=== PATIENT | male | born 1945 | race Caucasian/White ===

== ENCOUNTER → 2018-04-09 14:00 | Outpatient (CLI) | payer MEDICARE, OTHER, SELFPAY | PROVIDERS: PCP Family Medicine; Visit Provider Orthopaedic Surgery | DX: Z47.89 Encounter for other orthopedic aftercare (principal); M72.0 Palmar fascial fibromatosis [Dupuytren]; Z95.3 Presence of xenogenic heart valve ==

== ENCOUNTER → 2018-04-29 09:15 | Outpatient (CLI) | payer MEDICARE, OTHER, SELFPAY | PROVIDERS: PCP Family Medicine; Visit Provider Orthopaedic Surgery | DX: Z47.89 Encounter for other orthopedic aftercare (principal); M72.0 Palmar fascial fibromatosis [Dupuytren]; Z95.3 Presence of xenogenic heart valve ==

== ENCOUNTER → 2018-06-13 08:49 | Outpatient (BNVA) | payer MEDICARE, OTHER, SELFPAY | PROVIDERS: PCP Family Medicine; Referring Provider Family Medicine; Visit Provider Surgery | DX: K40.90 Unilateral inguinal hernia, without obstruction or gangrene, not specified as recurrent (principal) | CPT/HCPCS: 99202; 99213 ==

== ENCOUNTER 2018-07-08 07:03 | Day surgery (SDC) | payer MEDICARE, OTHER, SELFPAY ==
[2018-07-08] VITALS (7 sets, daily range): BP systolic 117–136; BP diastolic 55–77; PULSE 50–61; RESP 14–22; TEMP 36.2–36.6; O2SAT 96–98
[2018-07-08] MEDS: Lactated Ringers 1,000 ML 80 ML IV (07:55)
[2018-07-08] MEDS: Bupivacaine 0.25% Pres-Free 30 ML VIAL (08:59)
[2018-07-08] MEDS: Lidocaine 1% Pres-Free 5 ML VIAL (09:12)
--- NOTE | 2018-07-08 09:29 | HERN_PTH ---
PATIENT: Walt Doyle LOC: [facility] U#:[id number] AGE/SX: 73/M ROOM: RE07/08/[address]: Bhaskar Daly DO : 1945 BED: DIS: 07/08/2018 SPEC #: [id number] RECD: 07/08/18 13:05 STATUS: JAMILAH REQ #: [id number] KARI: 07/08/18 09:[address]: Bhaskar Daly DEPT: Surgical Specimen RECD BY: Floresita Pacheco ENTERED: 07/08/18 13:06 SP TYPE: Hernia Sac OTHR DR: Avelino Charles MD Tissues: 1 - HERNIA SAC, INGUINAL Procedures: GROSS AND MICRO LEVEL 3 Comments: [id number]
--- NOTE | 2018-07-08 15:12 | W.PM.OP ---
Date of service: 07/08/18 Time of Service: 09:00 Operative Note DATE OF PROCEDURE: 07/08/18 PRE-OP DIAGNOSIS: Left Inguinal Hernia POST-OP DIAGNOSIS: other (Left Indirect inguinal Hernia) PROCEDURE: Open Left Inguinal Hernia with mesh SURGEON: Bhaskar Daly PIPE STRIPPER: Chantal Abraham ANESTHESIA: GETA (LMA; Zack Cortes CRNA; ASA 2 Mallampati class IV), regional and local (1% lidocaine mixed with half percent Marcaine with epinephrine) ESTIMATED BLOOD LOSS: 5 PATHOLOGY: other (Hernia sac and cord lipoma) COMPLICATIONS: None Patient was transported to: PACU Patient's condition: stable Implants: Covidien pro-vision impaired teacher mesh anatomic left, lot number: [id number] Indications: Mr. Doyle was fishing in [place] in early May when he felt some pain in the left groin area and then noted a bulge. The bulge has gotten slightly larger up until about 3 weeks ago. he is able to reduce the bulge. He has some discomfort especially after he has been hiking or sitting for long periods of time. He denies any nausea or vomiting or changes in bowel habits. Findings: In exploring the left inguinal canal a indirect inguinal hernia was found along with associated large cord lipoma. The cord lipoma and hernia sac was subsequently excised, and the hernia repaired with mesh. Procedure Description: The patient was brought to the operating room. A time-out was completed verifying correct patient , procedure, site , allergies, medications, positioning, implants, and fire risk, prior to beginning the procedure. General anesthesia was induced, and LMA placed. Tap block was performed by anesthesia prior to performing the surgery, please see separate anesthesia note for full details. The left groin was prepped with chloraprep, and draped in the standard sterile fashion. The pubic tubercle, and anterior superior iliac spine (ASIS) were marked. A skin incision was marked starting just laterally to the pubic tubercle in a linear oblique fashion toward the ASIS. A field block was produced by injecting local along the proposed skin incision. Addition local was injected as needed during the case. I began by incising the previously marked incision line with a scalpel. The incision was deepened though Benito's and Camper's fascia with electocautery down until the aponeurosis of the external oblique was encountered. This was cleaned and the external ring exposed. Hemostasis was obtained in the wound with cautery. A stab incision was made in the midportion of the external oblique aponeurosis in the parallel to the fibers. Flaps of the external oblique were developed cephalad, and inferiorly. The cord was identified, gently dissected at the pubic tubercle, and encircled with a rajni drain, The cord was then explored, the vas deferens, and testicular vesicles were protected a indirect hernia sac was found anteromedially to the cord, which was subsequently dissected, twisted, and suture ligated after its contents were reduced. The redundant sac was sent for pathology, and the remainder reduced. A large cord lipoma was associated with the cord structures this was divided at the level of the internal ring using cautery, and sent with the hernia sac for pathology. The femoral canal was palpated and no hernia was identified. I selected a pro-vision impaired teacher anatomic left mesh lot number [id number] [place],then placed the mesh to re-enforce the floor of the inguinal canal, and create a new internal ring. The floor of the inguinal canal was cleaned medially over the pubic tubercle, cephalad over the conjoint tendon, laterally over the aponeurosis of the internal oblique, and inferiorly the inguinal ligament. A mesh was then laid in the floor of the canal with the mesh overlying the pubic tubercle medially, conjoint tendon cephalad, internal oblique aponeurosis laterally, and shelving edge of inguinal ligament inferiorly. The mesh was then inspected for apposition to the tissue, and pressed into place. The tip of a Debakey forceps easily passed through the new internal ring next the cord structures. The wound was then irrigated. Hemostasis again checked, and rajni drain removed. I closed the wound in layers, with 2-0 vicryl for the external oblique in a running fashion, 3-0 vicryl to approximate Benito's fascia, and the skin was closed with 4-0 vicryl with a running subcuticular fashion. A dressing was applied. The count was reported correct times two. No apparent complications during the case. The patient was brought to the PACU in good condition.
--- NOTE | 2018-07-08 15:20 | ROE_ITS ---
Date of service: 07/08/18 Time of Service: 09:00 Operative Note DATE OF PROCEDURE: 07/08/18 PRE-OP DIAGNOSIS: Left Inguinal Hernia POST-OP DIAGNOSIS: other (Left Indirect inguinal Hernia) PROCEDURE: Open Left Inguinal Hernia with mesh SURGEON: Bhaskar Daly MANAGER MARITIME: Chantal Abraham ANESTHESIA: GETA (LMA; Zack Cortes CRNA; ASA 2 Mallampati class IV), regional and local (1% lidocaine mixed with half percent Marcaine with epinephrine) ESTIMATED BLOOD LOSS: 5 PATHOLOGY: other (Hernia sac and cord lipoma) COMPLICATIONS: None Patient was transported to: PACU Patient's condition: stable Implants: Covidien pro-yarder operator mesh anatomic left, lot number: [id number] Indications: Mr. Doyle was fishing in [place] in early May when he felt some pain in the left groin area and then noted a bulge. The bulge has gotten slightly larger up until about 3 weeks ago. he is able to reduce the bulge. He has some discomfort especially after he has been hiking or sitting for long periods of time. He denies any nausea or vomiting or changes in bowel habits. Findings: In exploring the left inguinal canal a indirect inguinal hernia was found along with associated large cord lipoma. The cord lipoma and hernia sac was subsequently excised, and the hernia repaired with mesh. Procedure Description: The patient was brought to the operating room. A time-out was completed verifying correct patient , procedure, site , allergies, medications, positioning, implants, and fire risk, prior to beginning the procedure. General anesthesia was induced, and LMA placed. Tap block was performed by anesthesia prior to performing the surgery, please see separate anesthesia note for full details. The left groin was prepped with chloraprep, and draped in the standard sterile fashion. The pubic tubercle, and anterior superior iliac spine (ASIS) were marked. A skin incision was marked starting just laterally to the pubic tubercle in a linear oblique fashion toward the ASIS. A field block was produced by injecting local along the proposed skin incision. Addition local was injected as needed during the case. I began by incising the previously marked incision line with a scalpel. The incision was deepened though Benito's and Camper's fascia with electocautery down until the aponeurosis of the external oblique was encountered. This was cleaned and the external ring exposed. Hemostasis was obtained in the wound with cautery. A stab incision was made in the midportion of the external oblique aponeurosis in the parallel to the fibers. Flaps of the external oblique were developed cephalad, and inferiorly. The cord was identified, gently dissected at the pubic tubercle, and encircled with a rajni drain, The cord was then explored, the vas deferens, and testicular vesicles were protected a indirect hernia sac was found anteromedially to the cord, which was subsequently dissected, twisted, and suture ligated after its contents were reduced. The redundant sac was sent for pathology, and the remainder reduced. A large cord lipoma was associated with the cord structures this was divided at the level of the internal ring using cautery, and sent with the hernia sac for pathology. The femoral canal was palpated and no hernia was identified. I selected a pro-yarder operator anatomic left mesh lot number [id number] [place],then placed the mesh to re-enforce the floor of the inguinal canal, and create a new internal ring. The floor of the inguinal canal was cleaned medially over the pubic tubercle, cephalad over the conjoint tendon, laterally over the aponeurosis of the internal oblique, and inferiorly the inguinal ligament. A mesh was then laid in the floor of the canal with the mesh overlying the pubic tubercle medially, conjoint tendon cephalad, internal oblique aponeurosis laterally, and shelving edge of inguinal ligament inferiorly. The mesh was then inspected for apposition to the tissue, and pressed into place. The tip of a Debakey forceps easily passed through the new internal ring next the cord structures. The wound was then irrigated. Hemostasis again checked, and rajni drain removed. I closed the wound in layers, with 2-0 vicryl for the external oblique in a running fashion, 3-0 vicryl to approximate Benito's fascia, and the skin was closed with 4-0 vicryl with a running subcuticular fashion. A dressing was applied. The count was reported correct times two. No apparent complications during the case. The patient was brought to the PACU in good condition.
--- NOTE | 2018-07-08 15:41 | W.PM.DSUDISC ---
Discharge Plan Disposition Patient Disposition: HOME Condition: Good Discharge Details Reason For Visit: (L) INGUINAL HERNIA Attending Provider: Bhaskar Daly Primary Care Provider: Avelino Charles Home Meds and New Rx's Prescriptions: New tramadol 50 mg tablet 50 mg PO Q6H PRN (Reason: inguinal hernia repair) Qty: 10 RF: 0 Continue aspirin 81 mg tablet,chewable 81 mg PO DAILY RF: 0 atorvastatin 80 mg tablet 80 mg PO DAILY RF: 0 lansoprazole 15 mg capsule,delayed release(DR/EC) 15 mg PO DAILY RF: 0 metoprolol succinate 25 mg tablet extended release 24 hr 25 mg PO DAILY RF: 0 multivitamin [Daily Multi-Vitamin] tablet 1 tab PO DAILY RF: 0 adjuvant AS01B (PF)vial 1 of 2 [Shingrix Adjuvant Component-PF] suspension 0.5 ml IM ONCE Qty: 0.5 RF: 0 Discharge Instructions Instructions: Inguinal Hernia Repair (DC) Additional Instructions: Dr. Bhaskar Daly Post-Operative Discharge Instructions 1. Because there will be medication in your system for the next 24 hours, you may feel a little sleepy. Your coordination will be affected. Therefore: Do not drive or operate dangerous equipment for 24 hours. Do not drink alcohol beverages for 24 hours (not even beer). Plan to go home and rest for the day. Restrictions: Do not lift over 20lbs for 6 weeks. No strenuous bending or twisting for 6 weeks, if it hurts stop. No baths, you can shower. Let warm soapy water run over wound, then pat wound dry. Activity: The day of surgery spend most of the day resting in a comfortable bed or recliner. 2-3 times during the day get up and walk around the house. The day after surgery, or after your discharge, walk at least 3 times a day and spend increasing amounts of time walking and sitting up. If you are tired rest, but keep moving as able. Diet: Resume home diet as tolerated. Start with a light diet, your appetite will improve with time. Drink at least 4-6 glasses of water per day to keep hydrated. Wound Care: No dressing to remove, skin glue will wear off with time. You may cover the wound with a dry sterile dressing to keep clothing from rubbing against the wound. Call for appointment . Continue all your regular medications unless directed otherwise. Call the office or the Hospital Quality Assurance Monitor Body , If you have: Pain not controlled with pain medication. Nausea and vomiting. Temperature greater than 101 degrees Fahrenheit. Drainage from your wound that soaks through your dressing. *No more than 4000 milligrams of Tylenol in 24 hours. Narcotic pain medication can be constipating, if you have not had a bowel movement within 3 days use a laxative, I recommend Milk of Magnesia (MOM) 1oz. every 6 hrs until you have a bowel movement. I understand the above instructions and have no questions. Signature of Patient or Responsible Adult Escort Date/Time Name of Responsible Adult Escort Signature of Nurse Date/Time Revised 01/01/11 Stand Alone Forms: Anes.Nerve Block Instructions, DSU Post op Instructions, Lily Ashford (DSU) Referrals: Bhaskar Daly DO [ [facility] STAFF PHYSICIAN] - 07/23/18 9:00 am (Follow up for Inguinal hernia repair) Activity:: Activity as Tolerated Remove Dressings/Wound Care:: Do Not Remove Shower/Bathe:: 24 hours Diet:: As Tolerated Discharge Orders Discharge Orders: Discharge Order (Routine); Ordered 07/08/18 Ordered By: Bhaskar Daly Discharge Data Discharge Date/Time-TO BE ENTERED AT DEPARTURE: 07/08/18 13:06 DS: Diagnosis Discharge Diagnosis (1) Inguinal hernia of left side without obstruction or gangrene: Status: Acute Asessment and Plan: Open repair of left inguinal hernia with mesh. Operative Note DATE OF PROCEDURE: 07/08/18 PRE-OP DIAGNOSIS: Left Inguinal Hernia POST-OP DIAGNOSIS: other (Left Indirect inguinal Hernia) PROCEDURE: Open Left Inguinal Hernia with mesh SURGEON: Bhaskar Daly CERTIFIED INCOME TAX PREPARER: Chantal Abraham ANESTHESIA: GETA (LMA; Zack Cortes CRNA; ASA 2 Mallampati class IV), regional and local (1% lidocaine mixed with half percent Marcaine with epinephrine) ESTIMATED BLOOD LOSS: 5 PATHOLOGY: other (Hernia sac and cord lipoma) COMPLICATIONS: None Patient was transported to: PACU Patient's condition: stable Implants: [employer]idien pro-letterpress printing machinist mesh anatomic left, lot number: [id number] Indications: Mr. Doyle was fishing in [place] in early May when he felt some pain in the left groin area and then noted a bulge. The bulge has gotten slightly larger up until about 3 weeks ago. he is able to reduce the bulge. He has some discomfort especially after he has been hiking or sitting for long periods of time. He denies any nausea or vomiting or changes in bowel habits. Findings: In exploring the left inguinal canal a indirect inguinal hernia was found along with associated large cord lipoma. The cord lipoma and hernia sac was subsequently excised, and the hernia repaired with mesh. Procedure Description: The patient was brought to the operating room. A time-out was completed verifying correct patient , procedure, site , allergies, medications, positioning, implants, and fire risk, prior to beginning the procedure. General anesthesia was induced, and LMA placed. Tap block was performed by anesthesia prior to performing the surgery, please see separate anesthesia note for full details. The left groin was prepped with chloraprep, and draped in the standard sterile fashion. The pubic tubercle, and anterior superior iliac spine (ASIS) were marked. A skin incision was marked starting just laterally to the pubic tubercle in a linear oblique fashion toward the ASIS. A field block was produced by injecting local along the proposed skin incision. Addition local was injected as needed during the case. I began by incising the previously marked incision line with a scalpel. The incision was deepened though Benito's and Camper's fascia with electocautery down until the aponeurosis of the external oblique was encountered. This was cleaned and the external ring exposed. Hemostasis was obtained in the wound with cautery. A stab incision was made in the midportion of the external oblique aponeurosis in the parallel to the fibers. Flaps of the external oblique were developed cephalad, and inferiorly. The cord was identified, gently dissected at the pubic tubercle, and encircled with a rajni drain, The cord was then explored, the vas deferens, and testicular vesicles were protected a indirect hernia sac was found anteromedially to the cord, which was subsequently dissected, twisted, and suture ligated after its contents were reduced. The redundant sac was sent for pathology, and the remainder reduced. A large cord lipoma was associated with the cord structures this was divided at the level of the internal ring using cautery, and sent with the hernia sac for pathology. The femoral canal was palpated and no hernia was identified. I selected a pro-letterpress printing machinist anatomic left mesh lot number [id number] [place],then placed the mesh to re-enforce the floor of the inguinal canal, and create a new internal ring. The floor of the inguinal canal was cleaned medially over the pubic tubercle, cephalad over the conjoint tendon, laterally over the aponeurosis of the internal oblique, and inferiorly the inguinal ligament. A mesh was then laid in the floor of the canal with the mesh overlying the pubic tubercle medially, conjoint tendon cephalad, internal oblique aponeurosis laterally, and shelving edge of inguinal ligament inferiorly. The mesh was then inspected for apposition to the tissue, and pressed into place. The tip of a Debakey forceps easily passed through the new internal ring next the cord structures. The wound was then irrigated. Hemostasis again checked, and rajni drain removed. I closed the wound in layers, with 2-0 vicryl for the external oblique in a running fashion, 3-0 vicryl to approximate Benito's fascia, and the skin was closed with 4-0 vicryl with a running subcuticular fashion. A dressing was applied. The count was reported correct times two. No apparent complications during the case. The patient was brought to the PACU in good condition.
== END 2018-07-08 13:06 | disposition home or self-care (01) ==
PROVIDERS: PCP Family Medicine; Visit Provider Surgery
PROC: (CPT 49505; principal; 2018-07-08 09:00)
DX: K40.90 Unilateral inguinal hernia, without obstruction or gangrene, not specified as recurrent (principal); K21.9 Gastro-esophageal reflux disease without esophagitis
CPT/HCPCS: 49505; 76942; 88300; 88304; C1781; J0131; J0690; J1100; J1885; J2405

== ENCOUNTER 2018-07-18 02:28 | Outpatient (CLI) | payer MEDICARE, OTHER, SELFPAY ==
[2018-07-18 09:32] LABS: Cholesterol 174 mg/dL (50-200); HDL Cholesterol 44 mg/dL (40-60); LDL CHOLESTEROL 100 mg/dL (<100); Triglyceride 207 mg/dL (30-150)
[2018-07-21 12:09] LABS: Lyme Ab w Rflx to Lyme Confirm Negative
== END 2018-07-18 02:48 ==
PROVIDERS: PCP Family Medicine; Visit Provider Family Medicine
DX: I71.9 Aortic aneurysm of unspecified site, without rupture (principal); K59.4 Anal spasm; E78.5 Hyperlipidemia, unspecified; Z95.1 Presence of aortocoronary bypass graft; W57.XXXA Bitten or stung by nonvenomous insect and other nonvenomous arthropods, initial encounter; T14.8XXA Other injury of unspecified body region, initial encounter
CPT/HCPCS: 36415; 80061; 83721; 86618

== ENCOUNTER → 2018-07-23 08:52 | Outpatient (BNVA) | payer MEDICARE, OTHER, SELFPAY | PROVIDERS: PCP Family Medicine; Referring Provider Family Medicine; Visit Provider Surgery | DX: Z48.89 Encounter for other specified surgical aftercare (principal); K40.90 Unilateral inguinal hernia, without obstruction or gangrene, not specified as recurrent ==

== ENCOUNTER 2018-08-29 02:10 | Outpatient (CLI) | payer MEDICARE, OTHER, SELFPAY ==
[2018-08-29 09:32] LABS: ALT 45 U/L (12-78); AST 28 U/L (15-37); Albumin 3.6 g/dL (3.4-5.0); Alkaline Phosphatase 54 U/L (46-116); BUN 14 mg/dL (7-18); Bilirubin, Direct 0.11 mg/dL (0.00-0.20); Bilirubin, Total 0.4 mg/dL (0.2-1.0); Calcium 8.7 mg/dL (8.5-10.1); Chloride 105 mmol/L (98-107); Glucose 103 mg/dL (70-100); Potassium 4.2 mmol/L (3.5-5.1); Sodium 141 mmol/L (136-145); Total Protein 6.6 g/dL (6.4-8.2)
== END 2018-08-29 02:30 ==
PROVIDERS: PCP Family Medicine; Visit Provider Family Medicine
DX: B35.1 Tinea unguium (principal); Z95.1 Presence of aortocoronary bypass graft
CPT/HCPCS: 36415; 80053; 80076

== ENCOUNTER → 2018-09-18 13:54 | Outpatient (BNVA) | payer MEDICARE, OTHER, SELFPAY | PROVIDERS: PCP Family Medicine; Referring Provider Family Medicine; Visit Provider Physical Therapy Assistant | DX: Z12.11 Encounter for screening for malignant neoplasm of colon (principal); Z86.010 Personal history of colon polyps ==

== ENCOUNTER 2018-09-30 09:03 | Day surgery (SDC) | payer MEDICARE, OTHER, SELFPAY ==
--- NOTE | 2018-09-30 06:39 | W.COLOREPORT ---
Date of service: 09/30/18 Time of Service: 10:11 Colonoscopy Report Date of procedure: 09/30/18 Pre-op diagnosis general: Hx of polyps Post-op diagnosis procedure note: other (Diverticulosis, AVM, Hx of polyps) Procedure: Colonoscopy Surgeon: Sangita Matta Anesthesia proc note operative: MAC (Laura Quigley, VILLA/ ASA 2) Estimated blood loss (mL): 0 Pathology: none sent Complications: None Disposition: same day Indications: Mr. Doyle is a pleasant 73 year old male with a history of polyps who was seen in the office for a repeat colonoscopy. Risks, benefits and complications have been reviewed. Complications include but are not limited to bleeding, pain, perforation, missed small lesion/polyp, sore throat, aspiration and adverse reaction to the medications. Questions were entertained and answered to their satisfaction and they wished to proceed. No guarantees were given or implied. Prep: Miralax/Dulcolax Procedure Start Time: 10:11 Procedure End Time: 10:41 Retraction Time: 19 minutes Findings: AVM's scattered throughout Sigmoid diverticulosis Procedure Description: After informed consent was obtained the patient was taken to the procedure room and placed in a left decubitous position. Monitors were applied and a time out was done. The patients name, date of , procedure, allergies to medications and metal in their body was reviewed. The patient was then sedated. Once sedated and comfortable a rectal exam was done. External exam was normal. Internal exam revealed a normal sphincter tone and no palpable masses. The prostate was smooth. The scope was then introduced and retro-flexed. No internal hemorrhoids were identified. The scope was then advanced to the cecum with some difficulty due to a tortuous colon. The TI and appendiceal orifice were identified. The prep was good. The scope was then slowly retracted over 19 minutes back into the rectum. No polyps were noted, there were diverticula in the sigmoid colon. The scope was removed and the patient was woken up and taken back to Same day surgery in stable condition. The patient tolerated the procedure well and there were no immediate complications. Follow up: The patient should follow up in 5 years unless they develop changes in bowel habits or other new gastrointestinal complaints.
--- NOTE | 2018-09-30 06:51 | W.PM.DSUDISC ---
Discharge Plan Disposition Patient Disposition: HOME Condition: Good Discharge Details Reason For Visit: Hx of polyps/ colonoscopy Attending Provider: Sangita Matta Primary Care Provider: Avelino Charles Home Meds and New Rx's Prescriptions: Continued aspirin 81 mg tablet,chewable 81 mg PO DAILY RF: 0 lansoprazole 15 mg capsule,delayed release(DR/EC) 15 mg PO DAILY RF: 0 multivitamin [Daily Multi-Vitamin] tablet 1 tab PO DAILY RF: 0 atorvastatin 80 mg tablet 80 mg PO DAILY Qty: 90 RF: 4 metoprolol succinate 25 mg tablet extended release 24 hr 25 mg PO DAILY Qty: 90 RF: 4 terbinafine HCl 250 mg tablet 250 mg PO HS RF: 0 Discontinued bisacodyl [Dulcolax (bisacodyl)] 5 mg tablet,delayed release (DR/EC) 5 mg PO ONCE Qty: 4 RF: 0 polyethylene glycol 3350 17 gram/dose powder 255 g PO ONCE Qty: 255 RF: 0 Discharge Instructions Instructions: Colonoscopy (DC), Diverticulosis (DC) Additional Instructions: Findings: Diverticulosis Follow up: 5 years Please call if you develop: fevers >101.5 Nausea or Vomiting Abdominal pain that is not transient DAY SURGERY UNIT POST COLONOSCOPY INSTRUCTIONS 1. Because there will be medication in your system for the next 24 hours, you may feel a little sleepy. Your coordination will be affected. Therefore: a. Do not drive or operate dangerous equipment for 24 hours. b. Do not drink alcohol beverages for 24 hours (not even beer). c. Plan to go home and rest for the day. 2. Generally there are no restrictions on your activity after a day or so has gone by, but you may feel a bit fatigued for a few days. 3 After you arrive home you may have a light meal and return to a normal diet as you can tolerate it without feeling sick to your stomach. 4. After surgery, you may feel pain or discomfort. This should be only transient, but if it persists please contact your doctor. 5. If there are any questions regarding the findings of your procedure, please feel free to contact your doctor. 6. If you are unable to contact your doctor with a problem, contact the hospital at [phone]. 7. Continue all your regular medications unless directed otherwise. I understand the above instructions and have no questions. Signature of Patient or Responsible Adult Escort Date/Time Name of Responsible Adult Escort Signature of Nurse Date/Time Stand Alone Forms: Lily Ashford (MERCEDESU) Activity:: Activity as Tolerated Diet:: high fiber Discharge Orders Discharge Orders: Discharge Order (Routine); Ordered 09/30/18 Ordered By: Sangita Matta DS: Diagnosis Discharge Diagnosis (1) Personal history of colonic polyps: Status: Acute (2) S/P colonoscopy: Status: Acute (3) Diverticulosis: Status: Acute
[2018-09-30 09:11] VITALS: BP 135/75; PULSE 68; RESP 16; TEMP 36.6; O2SAT 98
[2018-09-30] MEDS: Lactated Ringers 1,000 ML 80 ML IV (09:38)
[2018-09-30 11:15] VITALS: BP 106/67; PULSE 59; RESP 16; TEMP 35.3; O2SAT 94
== END 2018-09-30 11:34 | disposition home or self-care (01) ==
LOC: SUR 09:03
PROVIDERS: PCP Family Medicine; Visit Provider Surgery
PROC: 0DJD8ZZ Inspection of Lower Intestinal Tract, Via Natural or Artificial Opening Endoscopic (ICD-10-PCS; CPT 45378; principal; 2018-09-30 09:45)
DX: Z12.11 Encounter for screening for malignant neoplasm of colon (principal); K57.30 Diverticulosis of large intestine without perforation or abscess without bleeding; K63.89 Other specified diseases of intestine; Z86.010 Personal history of colon polyps; K21.9 Gastro-esophageal reflux disease without esophagitis
CPT/HCPCS: G0105

== ENCOUNTER → 2018-10-08 13:06 | Outpatient (BNVA) | payer MEDICARE, OTHER, SELFPAY | PROVIDERS: PCP Family Medicine; Visit Provider Student in an Organized Health Care Education/Training Program | DX: R09.89 Other specified symptoms and signs involving the circulatory and respiratory systems (principal); E78.2 Mixed hyperlipidemia; Z86.79 Personal history of other diseases of the circulatory system; Z95.1 Presence of aortocoronary bypass graft; Z95.3 Presence of xenogenic heart valve; I25.810 Atherosclerosis of coronary artery bypass graft(s) without angina pectoris | CPT/HCPCS: 99215 ==

== ENCOUNTER 2018-10-24 01:36 | Outpatient (CLI) | payer MEDICARE, OTHER, SELFPAY ==
--- NOTE | 2018-10-24 13:29 | DI.US_ITS ---
SYMPTOMS/DIAGNOSIS: AORTIC VALVE STENOSIS, REPLACEMENT, CAROTID BRUIT, ASSESS DEGREE OF CAROTID STENOSIS, OTHER SYMPTOMS AND SIGNS INVOLVING THE CIRCULATORY SYSTEM, I35.0, R09.89 CAROTID ULTRASOUND: Routine examination was performed. On the right, there is marked calcific plaque seen in the bulb and proximal internal carotid artery. No hemodynamically significant velocity elevations are seen. The right vertebral artery is antegrade. On the left, no hemodynamically significant velocity elevations are present. The left vertebral artery is antegrade. IMPRESSION: No evidence of hemodynamically significant cervical carotid artery stenosis.
--- NOTE | 2018-10-24 14:15 | MERGE_ITS ---
*[facility]* *[facility]* [address] [place] [address] Date of study: 10/24/2018 Transthoracic Echocardiography M-mode, complete 2D, complete spectral Doppler, and color Doppler *STUDY CONCLUSIONS* Summary: 1. Left ventricle: The cavity size was normal. Wall thickness was normal. Systolic function was at the lower limits of normal. The estimated ejection fraction was 50-55%. Hypokinesis of the anteroseptal myocardium. 2. Right ventricle: The cavity size was at the upper limits of normal. Systolic function was mildly reduced. 3. Left atrium: The atrium was mildly dilated. 4. Aortic valve: A bioprosthesis was present and functioning normally. There was trivial regurgitation. Mean gradient (S): 11mm Hg. 5. Tricuspid valve: There was mild-moderate regurgitation. 6. Inferior vena cava: The vessel was patent and normal in size. The respirophasic diameter changes were in the normal range (greater than or equal to 50%), consistent with normal central venous pressure. *PATIENT PRESENTATION* Height: 185.4cm ((73in) ) S/D Pressure: 118 / 56 Weight: 86.2kg ((189.6lb) ) BSA: 2.11m^2 Test start time: 02:20 PM. Test stop time: 03:30 PM. PERFORMING Unknown ORDERING Zuhair Black REFERRING Zuhair Black CONSULTING Avelino Charles PERFORMING [facility] MANAGER DISH RT Desiree (R)(CT)FADY *PROCEDURE DATA* Procedure information: The patient was identified by two identifiers. This study was interpreted by [facility]. Pertinent images and digital data are archived for permanent storage and are available for subsequent review. Comparison was made to the study of 11/22/2015. Study status: Routine. Transthoracic echocardiography. M-mode, complete 2D, complete spectral Doppler, and color Doppler. A Transthoracic Echocardiogram was performed. Scanning was performed from the parasternal, apical, subcostal, and suprasternal notch acoustic windows. Images were obtained using an [id number] cardiac ultrasound machine. Image quality was adequate. Study completion: The patient tolerated the procedure well. There were no complications. History: PMH: Bruit, R09.89 other specified symptoms and signs involving the circulatory and respiratory system. AVR. *CARDIAC ANATOMY* Left ventricle: The cavity size was normal. Wall thickness was normal. Systolic function was at the lower limits of normal. The estimated ejection fraction was 50-55%. Regional wall motion abnormalities: Hypokinesis of the anteroseptal myocardium. Aortic valve: A bioprosthesis was present and functioning normally. Mobility was not restricted. Doppler: Transvalvular velocity was within the normal range. There was no stenosis. There was trivial regurgitation. VTI ratio of LVOT to aortic valve: 0.41. Valve area (VTI): 1.6cm^2. Indexed valve area (VTI): 0.7cm^2/m^2. Peak velocity ratio of LVOT to aortic valve: 0.43. Valve area (Vmax): 1.6cm^2. Indexed valve area (Vmax): 0.8cm^2/m^2. Mean velocity ratio of LVOT to aortic valve: 0.46. Valve area (Vmean): 1.7cm^2. Indexed valve area (Vmean): 0.8cm^2/m^2. Mean gradient (S): 11mm Hg. Peak gradient (S): 18.2mm Hg. Aorta: Aortic root: The aortic root was normal in size. Mitral valve: Mildly thickened leaflets. Mobility was not restricted. Doppler: Transvalvular velocity was within the normal range. There was no evidence for stenosis. There was mild regurgitation. Valve area by pressure half-time: 3.2cm^2. Indexed valve area by pressure half-time: 1.5cm^2/m^2. Left atrium: The atrium was mildly dilated. Right ventricle: The cavity size was at the upper limits of normal. Systolic function was mildly reduced. Pulmonic valve: Poorly visualized. The pulmonary valve appears to be grossly normal. Doppler: Transvalvular velocity was within the normal range. There was no evidence for stenosis. There was trivial regurgitation. Tricuspid valve: Structurally normal valve. Doppler: Transvalvular velocity was within the normal range. There was no evidence for stenosis. There was mild-moderate regurgitation. Pulmonary artery: Poorly visualized. Pulmonary systolic pressure was within the normal range, in the range of 25mm Hg to 30mm Hg. Right atrium: The atrium was normal in size. Pericardium: There was no pericardial effusion. Systemic veins: Inferior vena cava: Not well visualized. The vessel was patent and normal in size. The respirophasic diameter changes were in the normal range (greater than or equal to 50%), consistent with normal central venous pressure. Baseline ECG: Sinus bradycardia. Measurements Left ventricle Value Reference LV ID, ED, PLAX 5.1 cm 3.5 - 6.0 LV ID, ES, PLAX 3.6 cm 2.1 - 4.0 LV PW thickness, ED, PLAX 0.9 cm LV end-diastolic volume, 1-p A2C 89 ml LV ejection fraction, 1-p A2C 52 % LV end-diastolic volume, 1-p A4C 94 ml LV ejection fraction, 1-p A4C 51 % LV e', lateral 0.182 m/sec LV E/e', lateral 3 LV e', medial 0.078 m/sec LV E/e', medial 6 LV e', average 0.13 m/sec LV E/e', average 4 Ventricular septum Value Reference IVS thickness, ED, PLAX 1.0 cm LVOT Value Reference LVOT ID, A-P 2.2 cm LVOT area 3.8 cm^2 LVOT peak velocity, S 0.91 m/sec LVOT mean velocity, S 0.71 m/sec LVOT VTI, S 22.3 cm LVOT peak gradient, S 3.3 mm Hg LVOT mean gradient, S 2.2 mm Hg Stroke volume (SV), LVOT DP 85 ml Stroke index (SV/bsa), LVOT DP 40 ml/m^2 Aortic valve Value Reference Aortic valve peak velocity, S 2.1 m/sec Aortic valve mean velocity, S 1.56 m/sec Aortic valve VTI, S 54.0 cm Aortic mean gradient, S 11 mm Hg Aortic peak gradient, S 18.2 mm Hg VTI ratio, LVOT/AV 0.41 Aortic valve area, VTI 1.6 cm^2 Velocity ratio, peak, LVOT/AV 0.43 Aortic valve area, peak velocity 1.6 cm^2 Velocity ratio, mean, LVOT/AV 0.46 Aortic valve area, mean velocity 1.7 cm^2 Aortic valve area/bsa, mean velocity 0.8 cm^2/m^2 Left atrium Value Reference LA ID, A-P, ES 4.6 cm LA ID/bsa, A-P 2.2 cm/m^2 <=2.2 LA area, ES, A4C 21.6 cm^2 8.8 - 23.4 LA area, ES, A2C 20 cm^2 LA volume/bsa, ES, 1-p A4C 34 ml/m^2 LA volume, ES, 2-p 65 ml LA volume/bsa, ES, 2-p 31 ml/m^2 Mitral valve Value Reference Mitral E-wave peak velocity 0.49 m/sec Mitral A-wave peak velocity 0.37 m/sec Mitral deceleration time (H) 236 ms 150 - 230 Mitral pressure half-time 68 ms Mitral E/A ratio, peak 1.35 Mitral valve area, PHT, DP 3.2 cm^2 Pulmonary veins Value Reference Pulmonary vein peak velocity, S 0.75 m/sec Pulmonary vein peak velocity, D 0.54 m/sec Pulmonary vein velocity ratio, peak, 1.39 S/D Pulmonary vein A-wave reversal peak 0.94 m/sec velocity Pulmonary vein A-wave reversal 204 ms duration Tricuspid valve Value Reference Tricuspid regurg peak velocity 2.5 m/sec Tricuspid peak RV-RA gradient 25.9 mm Hg Right atrium Value Reference RA area, ES, A4C 19.3 cm^2 8.3 - 19.5 Legend: (L) and (H) mando values outside specified reference range. I have personally reviewed the images and have reviewed and edited the reported findings. Electronically signed by Malu Pinto 10/25/2018 08:02
== END 2018-10-24 01:56 ==
PROVIDERS: PCP Family Medicine; Visit Provider Student in an Organized Health Care Education/Training Program
DX: R09.89 Other specified symptoms and signs involving the circulatory and respiratory systems (principal); Z95.3 Presence of xenogenic heart valve; I35.0 Nonrheumatic aortic (valve) stenosis; Z95.1 Presence of aortocoronary bypass graft; E78.5 Hyperlipidemia, unspecified
CPT/HCPCS: 93306; 93880

== ENCOUNTER 2019-07-23 02:04 | Outpatient (CLI) | payer MEDICARE, OTHER, SELFPAY ==
[2019-07-23 08:03] LABS: Anion Gap 5.4 mmol/L (3-11); BUN 12 mg/dL (7-18); CO2 30.6 mmol/L (21.0-32.0); CREATININE 0.77 mg/dL (0.70-1.30); Calcium 8.7 mg/dL (8.5-10.1); Chloride 107 mmol/L (98-107); Glucose 104 mg/dL (70-100); Potassium 4.6 mmol/L (3.5-5.1); Sodium 143 mmol/L (136-145)
== END 2019-07-23 02:24 ==
PROVIDERS: PCP Family Medicine; Visit Provider Family Medicine
DX: Z95.1 Presence of aortocoronary bypass graft (principal); I25.10 Atherosclerotic heart disease of native coronary artery without angina pectoris
CPT/HCPCS: 36415; 80048

== ENCOUNTER 2020-07-29 02:02 | Outpatient (CLI) | payer MEDICARE, OTHER, SELFPAY ==
[2020-07-29 09:59] LABS: Calculated LDL 85 mg/dL (<100); Cholesterol 153 mg/dL (<200); HDL Cholesterol 52 mg/dL (40-60); Triglyceride 81 mg/dL (<150)
== END 2020-07-29 02:22 ==
PROVIDERS: PCP Nurse Practitioner; Visit Provider Nurse Practitioner
DX: I71.2 Thoracic aortic aneurysm, without rupture (principal)
CPT/HCPCS: 36415; 80061

== ENCOUNTER 2021-01-06 02:14 | Outpatient (CLI) | payer MEDICARE, OTHER, SELFPAY ==
[2021-01-06 17:05] LABS: PSA, Screening 1.3 ng/mL (0.0-6.5)
== END 2021-01-06 02:15 | disposition home or self-care (01) ==
PROVIDERS: PCP Nurse Practitioner; Visit Provider Nurse Practitioner
DX: R35.1 Nocturia (principal); Z12.5 Encounter for screening for malignant neoplasm of prostate
CPT/HCPCS: 36415; 84153

== ENCOUNTER 2021-08-31 03:35 | Outpatient (CLI) | payer MEDICARE, OTHER, SELFPAY ==
[2021-08-31 08:18] LABS: Calculated LDL 107 mg/dL (<100); Cholesterol 183 mg/dL (<200); HDL Cholesterol 53 mg/dL (40-60); Triglyceride 117 mg/dL (<150)
[2021-08-31 09:46] LABS: Hemoglobin A1C 5.5 % (<5.7)
== END 2021-08-31 03:36 | disposition home or self-care (01) ==
LOC: LBO 03:35
PROVIDERS: PCP Nurse Practitioner; Visit Provider Nurse Practitioner
DX: E78.00 Pure hypercholesterolemia, unspecified (principal); I71.2 Thoracic aortic aneurysm, without rupture; R73.09 Other abnormal glucose
CPT/HCPCS: 36415; 80061; 83036

== ENCOUNTER 2021-09-26 08:16 | Outpatient (CLI) | payer MEDICARE, OTHER, SELFPAY ==
--- NOTE | 2021-09-26 08:15 | RT.EKG_ITS ---
APPROVED REPORT Exam: Resting ECG Reason for Exam: CAD Patient Location: O HR:60 bpm ECG Measurements Heart Rate 60 AXIS TN 174 P 41 QRSd 117 QRS 74 QT 432 T -8 QTc 432 Conclusion Sinus rhythm...normal P axis, V-rate 50- 99 Probable left ventricular hypertrophy...multiple LVH criteria Borderline T abnormalities, inferior leads...T flat/neg, II III aVF
== END 2021-09-26 08:17 | disposition home or self-care (01) ==
LOC: DI.CARD 08:25
PROVIDERS: PCP Nurse Practitioner; Visit Provider Internal Medicine Cardiovascular Disease
DX: I25.10 Atherosclerotic heart disease of native coronary artery without angina pectoris (principal); Z95.1 Presence of aortocoronary bypass graft
CPT/HCPCS: 93010

== ENCOUNTER → 2021-09-26 10:44 | Outpatient (BNVA) | payer MEDICARE, OTHER, SELFPAY | PROVIDERS: PCP Nurse Practitioner; Referring Provider Nurse Practitioner; Visit Provider Internal Medicine Cardiovascular Disease | DX: I25.10 Atherosclerotic heart disease of native coronary artery without angina pectoris (principal); Z95.1 Presence of aortocoronary bypass graft; Z98.890 Other specified postprocedural states; Z86.79 Personal history of other diseases of the circulatory system; I10 Essential (primary) hypertension | CPT/HCPCS: 93005; 99203; 99214 ==

== ENCOUNTER 2021-10-18 00:38 | Outpatient (CLI) | payer MEDICARE, OTHER, SELFPAY ==
--- NOTE | 2021-10-18 07:30 | DI.CT_ITS ---
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 TECHNIQUE: Imaging Protocol: CT angiography of the chest was performed using pulmonary embolus manuel col. Multi planar reconstructions were performed. CONTRAST MATERIAL: Intravenous: Omnipaque 350 Contrast volume: 100 cc COMPARISON: No exams were available for comparison FINDINGS: CHEST: PULMONARY ARTERIES: There are no intraluminal filling defects to suggest acute pulmonary emboli. THORACIC AORTA: There is sternotomy wires and a prosthetic aortic valve. Diameter of the ascending t horacic aorta is prominent, measuring 4.4 cm. No obvious aortic dissection. LUNGS: There are no infiltrates nor evidence of pulmonary infarction.. There are no pleural effusions . MEDIASTINUM: There is no hilar nor mediastinal adenopathy. Visualized thyroid unremarkable. CARDIAC: Heart size is upper normal. There is no pericardial effusion. There is no significant shift of the interventricular septum. PARTIALLY VISUALIZED UPPERMOST ABDOMEN: No obvious findings OSSEOUS: No significant osseous lesions.. IMPRESSION: 1. No evidence of acute pulmonary emboli. No evidence of pulmonary infarction.No infiltrates nor vanessa nous pulmonary nodules. No pleural effusions 2. Sternotomy. Prosthetic aortic valve. 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 No pericardial effusion. RADIATION DOSE DELIVERED: 494.23mGy.cm Total DLP DATA REPOSITORY: All CT scans at this facility are submitted to the National Radiology Data Registry (NRDR) Dose Index Registry (DIR) with the [employer] (ACR). RADIATION OPTIMIZATION: All CT scans at this facility use at least one of these dose optimization te chniques: automated exposure control; mA and/or kV adjustment per patient size (includes targeted exa ms where dose is matched to clinical indication); or iterative reconstruction.
[2021-10-18 14:18] LABS: CREATININE 0.8 mg/dL (0.70-1.30)
[2021-10-18] MEDS: Omnipaque 350 MG/ML 100 ML BTL IJ (15:11)
[2021-10-18] MEDS: Normal Saline Flush 10 ML SYR IVP (15:12)
== END 2021-10-18 00:58 ==
PROVIDERS: PCP Nurse Practitioner; Visit Provider Internal Medicine Cardiovascular Disease
DX: I71.4 Abdominal aortic aneurysm, without rupture (principal); Z98.890 Other specified postprocedural states; Z95.1 Presence of aortocoronary bypass graft; Z95.2 Presence of prosthetic heart valve; Z01.812 Encounter for preprocedural laboratory examination
CPT/HCPCS: 71275; 82565; J3490

== ENCOUNTER 2021-11-10 01:00 | Outpatient (CLI) | payer MEDICARE, OTHER, SELFPAY ==
--- NOTE | 2021-11-10 06:30 | DI.US_ITS ---
APPROVED REPORT EXAM: Comprehensive 2D, Doppler, and color-flow Echocardiogram Patient Location: Out-Patient Office Support Specialist: Felicita Tatum RDCS (AE) Indications: Bioprosthetic aortic valve, Thoracic aortic aneurysm repair Other Information Study Quality: Adequate Conclusion Normal left ventricular wall thickness and chamber size. Estimated ejection fraction is approximatel y 60%. Wall motion is normal Normal right ventricular size and systolic function Both atria are mildly dilated There is a bioprosthetic aortic valve present. Mean gradient is 8.5 mmHg. There is no aortic regurg itation The ascending aorta is not well visualized Wall motion Left Ventricle The left ventricle is normal size. The left ventricular systolic function is normal. The left ventric ular ejection fraction is within the normal range. There is normal left ventricular wall thickness. T here is normal LV segmental wall motion. There is no ventricular septal defect visualized. LVEF is 59 %. Right Ventricle The right ventricle is normal size. The right ventricular systolic function is normal. Atria Left atrium is mildly dilated. Right atrium is mildly dilated. The interatrial septum is intact with no evidence for an atrial septal defect. Aortic Valve There is no aortic valvular stenosis. No aortic regurgitation is present. Bioprosthetic aortic valve is present. Mitral Valve The mitral valve is normal in structure. No evidence of mitral valve stenosis. Trace mitral regurgita tion. Tricuspid Valve The tricuspid valve is normal in structure. There is no tricuspid valve stenosis. Mild tricuspid regu rgitation. Pulmonic Valve Pulmonic valve is not well visualized. There is no pulmonic valvular stenosis. There is no pulmonic v alvular regurgitation. Great Vessels The aortic root is normal in size. Ascending aorta is not well visualized. Aortic arch is normal in c aliber. IVC is normal in size and collapses >50% with inspiration. Pericardium There is no pericardial effusion. 2D Dimensions IVSD d PLAX 1.04 cm M: 0.6-1.2 LV Vol A2C d MOD 116.7 mL LVPW d PLAX 1.00 cm M: 0.6 - 1.2 LV Vol A4C d MOD 126.3 mL LVID d PLAX 5.14 cm M: 4.2 - 5.8 LA vol/ BSA A2C s A-L 41.9 mL/m2 LVDs 3.30 cm M: 2.5 - 4.0 LA vol/ BSA A4C s A-L 27.9 mL/m2 Ao Root d 2.80 cm M: 3.1 - 3.7 LA Vol/ BSA Biplane s A-L 36.0 mL/m2 RA Area A4C 14.53 cm2 LA Area A4C s MOD 19.99 cm2 RA Vol/ BSA A4C s A-L 17.5 mL/m2 LA Area A2C s MOD 23.28 cm2 LV EF Teichholz 64.1 % LV EF A4C MOD 59.9 % LVEF (Davis's) 58.47 % M: 52 - 72 LV EF A2C MOD 58.9 % LV Volume 92.09 mL M: 62 - 150 LV EF Biplane MOD 58.5 % LV Volume Index 44.70 mL/m2 M: 34 - 74 SV 72.52 mL LV Vol Biplane MOD 124.0 mL SV Index 35.19 mL/m2 FS 35.10 % LV Diastology MV E' medial 0.087 (>0.07 m/s) E/A Ratio 1.1 LV E/e MED 7.70 (<14) MV E Vmax 0.67 (0.4-1.3 m/s) MV E' lateral 0.171 (>0.1 m/s) MV A Vmax 0.60 (0.4-1.3 m/s) LV E/e LAT 3.90 (<14) MV E/A Ratio 1.10 MV E/E' medial 7.70 MV E/E' lateral 3.92 Aortic Valve LVOT Area 4.14 cm2 AoV Area Vmax 2.00 cm2 LVOT Vmax 0.94 m/s AoV Area/ BSA (Vmax) 0.97 cm2/m2 LVOT Mean Dewayne. 0.68 m/s SIDNEY Mean Dewayne. 2.07 cm2 LVOT Peak Grad 3.5 mmHg SIDNEY Mean Dewayne. Index 1.01 cm2/m2 LVOT Mean Grad 2.0 mmHg LVOT VTI 0.219 m LVOT Diam s 2.25 cm AoV Vmax 1.94 m/s Velocity Ratio 0.48 AoV Mean Dewayne. 1.35 m/s AoV Peak Grad 15.0 mmHg LVOT SV 90.73 mL AoV Mean Grad 8.5 mmHg AoV VTI 0.471 m AoV Area VTI 1.93 cm2 AoV Area/ BSA (VTI) 0.93 cm/m2 Mitral Valve MV DT 269 (160-240 msec) MV PHT 78 msec MV Area PHT 2.82 cm2 MV VTI 0.274 m MV Area VTI 3.32 (4.0-6.0 cm2) Pulmonary Valve PV Vmax 0.92 (0.5-1.5 m/s) RVOT Peak Gr. 2.30 mmHg PV Peak Grad 3.4 mmHg RVOT Mean Gr. 1.00 mmHg PV Mean Grad 2.3 mmHg RVOT VTI 0.152 m PV VTI 0.248 m RVOT Vmax 0.76 m/s Tricuspid Valve TR Peak Grad 19.8 mmHg TR Vmax 2.23 m/s RA Pressure 3.00 mmHg RVSP (TR) 22.9 mmHg
== END 2021-11-10 01:20 ==
PROVIDERS: PCP Nurse Practitioner; Visit Provider Internal Medicine Cardiovascular Disease
DX: I25.10 Atherosclerotic heart disease of native coronary artery without angina pectoris (principal)
CPT/HCPCS: 93306

== ENCOUNTER → 2022-06-26 09:14 | Outpatient (BNVA) | payer MEDICARE, OTHER, SELFPAY | PROVIDERS: PCP Nurse Practitioner; Referring Provider Nurse Practitioner; Visit Provider Internal Medicine Cardiovascular Disease | DX: I25.810 Atherosclerosis of coronary artery bypass graft(s) without angina pectoris (principal); Z86.79 Personal history of other diseases of the circulatory system; Z95.1 Presence of aortocoronary bypass graft; Z98.890 Other specified postprocedural states | CPT/HCPCS: 99214 ==

== ENCOUNTER → 2022-09-13 10:49 | Outpatient (BNVA) | payer MEDICARE, SELFPAY | PROVIDERS: PCP Nurse Practitioner Family; Referring Provider Nurse Practitioner Family; Visit Provider Urology | DX: R39.89 Other symptoms and signs involving the genitourinary system (principal); N39.42 Incontinence without sensory awareness | CPT/HCPCS: 51798; 81003; 99213 ==

== ENCOUNTER 2023-03-08 04:50 | Emergency (ER) | payer MEDICARE, SELFPAY ==
[2023-03-08] VITALS (53 sets, daily range): BP systolic 118–128; BP diastolic 57–80; PULSE 48–78; RESP 0–28; TEMP 36.4–36.8; O2SAT 81–99
--- NOTE | 2023-03-08 04:45 | RT.EKG_ITS ---
APPROVED REPORT Exam: Resting ECG Reason for Exam: dizzy Patient Location: E HR:57 bpm ECG Measurements Heart Rate 57 AXIS SC 179 P 22 QRSd 120 QRS 76 QT 509 T 48 QTc 495 Conclusion Sinus bradycardia...rate< 60 Nonspecific intraventricular conduction delay...QRSd >115mS, not LBBB/RBBB
--- NOTE | 2023-03-08 05:00 | DI.CT_ITS ---
Exam(s) CT HEAD WO EXAM: CT HEAD WO CLINICAL HISTORY: dizziness. TECHNIQUE: Imaging Protocol: Axial computed tomography images with coronal and sagittal reformatted images were created and reviewed COMPARISON: No exams were available for comparison FINDINGS: Ventricles and Extra axial spaces: Normal in size and morphology for the patient's age. Hemorrhage: None. Cerebral parenchyma: Minimal atrophy. No significant white matter changes visible. No evidence of a cute infarct or mass. Midline shift: None. Brainstem/Cerebellum: Normal. Calvarium: Normal. Visualized Paranasal sinuses/Mastoids: Clear. Soft Tissues: Unremarkable. IMPRESSION: No acute intracranial process. RADIATION DOSE DELIVERED: 886.94mGy.cm Total DLP DATA REPOSITORY: All CT scans at this facility are submitted to the National Radiology Data Registry (NRDR) Dose Index Registry (DIR) with the [employer] (ACR). RADIATION OPTIMIZATION: All CT scans at this facility use at least one of these dose optimization te chniques: automated exposure control; mA and/or kV adjustment per patient size (includes targeted exa ms where dose is matched to clinical indication); or iterative reconstruction.
--- NOTE | 2023-03-08 05:01 | ED.GENADUL_ITS ---
Discharge Plan Discharge Details Chief Complaint: Nausea/Vomit/Diar Primary Care Provider: Hira Davis ED Provider: Nathen Underwood Home Meds and New Rx's Prescriptions: No Action aspirin 81 mg tablet,chewable 81 mg PO DAILY lansoprazole 15 mg capsule,delayed release(DR/EC) 15 mg PO DAILY atorvastatin 80 mg tablet 80 mg PO DAILY Qty: 90 4RF metoprolol succinate 25 mg tablet extended release 24 hr 25 mg PO DAILY Qty: 90 4RF amoxicillin 500 mg capsule 2,000 mg PO PRN PRN (Reason: for dental work) Medical Decision Making Imaging Data Radiologic Study: Imaging: X-Ray My impression: No infiltrate in the chest x-ray as interpreted by me ECG Data Attestation: I personally reviewed and interpreted this ECG (s) as follows: Prior ECG tracings: available for review Interpretation: Sinus bradycardia...rate 57 looks feels better Nonspecific intraventricular conduction delay...QRSd >115mS, not LBBB/RBBB HPI General Date/Time Provider Initiated Documentation: 03/08/23 05:00 . HPI Narrative: Patient presents emergency department stating that he woke up to go to the bathroom and felt dizzy like things were spinning and could not walk got very nauseous and started having episode of vomiting. Also had watery diarrhea. States that he is still dizzy reason he came to the emergency department but he drove himself here. He states that driving was hard because things seem to be spinning. Denies any chest pain denies any shortness of breath denies any headache. Patient also states that prior to this episode last he was mowing the lawn yesterday and to exercise he was profusely diaphoretic and last night when he had the episode of dizziness also he was potentially diaphoretic. Related Data Home Medications Medication Instructions Recorded Confirmed aspirin 81 mg chewable tablet 81 mg PO DAILY 05/20/18 03/08/23 lansoprazole 15 mg capsule,delayed 15 mg PO DAILY 05/20/18 03/08/23 release atorvastatin 80 mg tablet 80 mg PO DAILY #90 tabs 09/16/22 03/08/23 metoprolol succinate 25 mg 25 mg PO DAILY #90 tabs 09/16/22 03/08/23 tablet,extended release 24 hr amoxicillin 500 mg capsule 2,000 mg PO PRN PRN for dental work 03/08/23 03/08/23 Previous Rx's Medication Instructions Recorded atorvastatin 80 mg tablet 80 mg PO DAILY #90 tabs 09/16/22 metoprolol succinate 25 mg 25 mg PO DAILY #90 tabs 09/16/22 tablet,extended release 24 hr Allergies Allergy/AdvReac Type Severity Reaction Status Date / Time No Known Allergies Allergy Verified 03/08/23 04:57 Review of Systems All systems reviewed & are unremarkable except as noted in HPI and below Constitutional Constitutional: Reports as per HPI Eyes Eyes: Reports as per HPI and Reports system reviewed and no additional complaints, except as documented ENT Ears, Nose, Mouth, and Throat: Reports system reviewed and no additional complaints, except as documented Cardiovascular Cardiovascular: Reports as per HPI and Reports system reviewed and no additional complaints, except as documented Respiratory Respiratory: Reports as per HPI and Reports system reviewed and no additional complaints, except as documented Gastrointestinal Gastrointestinal: Reports as per HPI and Reports system reviewed and no additional complaints, except as documented Genitourinary Genitourinary: Reports system reviewed and no additional complaints, except as documented and Reports as per HPI Musculoskeletal Musculoskeletal: Reports system reviewed and no additional complaints, except as documented Integumentary/Breasts Skin/Breast: Reports system reviewed and no additional complaints, except as documented Neurologic Neurologic: Reports system reviewed and no additional complaints, except as documented Psychiatric Psychiatric: Reports system reviewed and no additional complaints, except as documented Endocrine Endocrine: Reports system reviewed and no additional complaints, except as documented PFSH All Active Problems Gastroesophageal reflux disease (Acute 07/09/13) H/O aortic aneurysm repair (Acute) 11/2011 [facility] [place] coronary artery bypass surgery (Acute) 11/2011 with pericardial AVR [facility] [place] Hyperlipidemia (Acute 07/09/13) Migraine without aura (Acute 07/09/13) ocular migraines Sleep disorder (Acute) Decreased hearing of left ear (Acute) Leaking of urine (Acute) Post-nasal drainage (Acute) Seborrheic keratoses (Acute) Urinary incontinence without sensory awareness (Acute) Multiple nevi (Acute) Jock itch (Acute) Medical History Contracture of palmar fascia (07/09/13) multiple surgeries - also for ganglion cysts Diverticulosis Family history of ischemic heart disease (07/09/13) History of tobacco use (07/09/13) Inguinal hernia of left side without obstruction or gangrene Personal history of colonic polyps 07/01/13 -tubular adenoma Plantar fasciitis (07/09/13) 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 replacement of ascending aorta with aortic valve replacement with triple bypass three years ago b. ganglion cyst removal c. hand surgery d. Achilles tendon surgery e. tonsillectomy and adenoidectomy f. vasectomy g. colonoscopy HAND SURGERY 04/22; DR. SANCHEZ REPAIR OF ACHILLES TENDON Repair of inguinal hernia Repair of umbilical hernia (~09/2014) S/P colonoscopy (~09/30/18) Tonsillectomy and adenoidectomy Vasectomy Family History Mother No problems noted. Father , AGE 62 Heart disease Sister No problems noted. Maternal Grandfather , age 84 Stroke Paternal Grandfather , age 62 Heart disease Maternal Grandmother , age 84 Stroke Son No problems noted. Daughter No problems noted. Paternal Grandmother , age 90 No problems noted. Social History Smoking/Tobacco Use Status: Former Tobacco Use tobacco type: cigarettes Quit Date: 09/09/72 Tobacco: How many years used: 6 Quit status: quit date established Second Hand Exposure: No Smoking risk assessment performed?: Yes Alcohol Intake: current Alcohol Intake frequency: a few times a month Alcohol type: beer and hard liquor Drug use: Never Substance use type: does not use Caregiver/Support person: No Household members: spouse Housing: house Communication Needs: Corrective Lenses Do you need help understanding health information?: Never Pets and animals: No Sexually active: Yes Do you think of yourself as: straight/heterosexual Current gender identity: male What is your relationship status?: How often do you talk on the phone with friends or family?: three or more times per week How often do you get together with friends or relatives?: decline to answer How often do you attend worship or denominational services?: 1-3 times per year Do you belong to any clubs or organized social groups?: no Panel score (0-1 are the most socially isolated patients): 2 What type of physical activity do you participate in: none and walking Frequency: does not exercise Margie/Sikhism: Taoist Special margie needs: No Seatbelt use: always Helmet use: Yes Helmet use: sometimes Drive intox or ride w/intox lokie driver: No Do you feel safe at home: Yes Do you feel safe in your relationship?: Yes Victim of physical abuse: No Victim of emotional abuse: No Victim of sexual abuse: No Would you like helpful sources: No Exam Narrative Exam Narrative: Exam; vitals signs as reported above Constitutional; In no acute distress, afebrile General: cooperative, healthy appearing, comfortable and no acute distress HEENT: Head: normal to inspection, no palpable skull fracture and normocephalic Eyes: l: appearance normal, both eyes and all related structures ]Pupils: PERRL EOM: EOM intact bilaterally Direct ophthalmoscopy: normal light reflex, normal conjunctiva, normal visual acuity Neck no JVD, supple Neck: normal visual inspection, full ROM and no lymphadenopathy Chest Chest: normal inspection of the chest Respiratory : normal respiratory effort and able to speak in complete sentences Cardio Rate: Bradycardic regular rate Rhythm: regular rhythm normal heart sounds S1 and S2 no murmurs, gallops, or rubs GI Inspection: normal to inspection, normal bowel sounds, soft, non tender, non distended, no organomegally Back/Spine/ no CVA tenderness Thoracic/Lumbar Spine: no tenderness or deformities Skin no rashes or lesions Neuro: patient alert and no meningeal signs, Cranial Nerves: CN's II-XI intact bilaterally, Cognition: normal cognition, Speech: speech normal, Gait: normal gait, Depp tendon reflexes normal 2+ Extremities, no edema, full range of motion, normal strength POCUS Exam (ED) Limited Cardiac Exam DATE OF EXAM: 03/08/23 TIME OF EXAM: 07:16 PROVIDER THAT PERFORMED THE STUDY: Nathen Underwood REASON FOR EXAM: Hypoxia VISUALIZED STRUCTURES: Four Chambers, Left atrium, Left ventricle, LVOT, Right atrium, Right ventricle, Aortic valve, Mitral valve, Interventricular septum and IVC VIEW OBTAINED: Apical 4-Chamber, Parasternal long-axis, Parasternal short-axis and Subxiphoid PERTINENT FINDINGS/IMPRESSION: No apparent abnormalities Exam complete Sign Out Sign Out Data: Sign Out Comment: Patient presents to the emergency department with dizziness and diaphoresis who had labs done with an elevated D-dimer and a CT PE is pending POCUS exam and troponin as well as beta drug peptide are all negative. Patient feels fine after meclizine was likely he has experienced vertigo. Last updated by Nathen Underwood MD at 03/08/23 07:31
[2023-03-08] MEDS: Ondansetron 4 MG/2 ML VIAL IVP (05:15)
[2023-03-08] MEDS: Normal Saline 1,000 ML 1000 ML IV (05:16)
[2023-03-08] MEDS: Meclizine 25 MG TAB PO (05:17)
[2023-03-08 05:36] LABS: Abs Immature Grans 0.02 10^3/uL (0.0-0.06); Absolute Eosinophil Count 0.24 10^3/uL (0.0-0.7); Absolute Lymphocyte Count 2.21 10^3/uL (1.2-3.4); Absolute Monocyte Count 0.68 10^3/uL (0.1-0.8); Basophils % 1.7; HCT 41.5 % (40.0-50.0); HGB 14.5 g/dL (13.5-17.5); Immature Grans % 0.3; Lymphocytes % 36.5; MCH 31.7 pg (27.0-33.0); MCHC 34.9 % (32.0-36.0); MCV 91 fL (80-95); MPV 9.8 fL (8.0-11.0); Monocytes % 11.2; Neutrophils % 46.3; Platelet Count 206 10^3/uL (130-400); RBC 4.57 10^6/uL (4.36-5.78); RDW 12.3 % (11.8-14.1); RDW-SD 40.9 fL; WBC 6.05 10^3/uL (4.4-10.8)
[2023-03-08 05:55] LABS: ALT 33 U/L (16-63); AST 30 U/L (15-37); Albumin 3.4 g/dL (3.4-5.0); Alkaline Phosphatase 59 U/L (46-116); BUN 16 mg/dL (7-18); Bilirubin, Total 0.4 mg/dL (0.2-1.0); CREATININE 0.8 mg/dL (0.70-1.30); Calcium 8.5 mg/dL (8.5-10.1); Chloride 106 mmol/L (98-107); Estimated GFR 91.72 (mL/min/1.73m2); Glucose 130 mg/dL (74-106); Magnesium 1.8 mg/dL (1.8-2.4); Potassium 3.2 mmol/L (3.5-5.1); Sodium 141 mmol/L (136-145); Total Protein 6.6 g/dL (6.4-8.2); Troponin I < 50 ng/L (<or=60)
--- NOTE | 2023-03-08 06:00 | DI.RAD_ITS ---
Exam(s) XR PORTABLE CHEST AP EXAM: XR PORTABLE CHEST AP CLINICAL HISTORY: dyspnea TECHNIQUE: 2D digital imaging was performed. COMPARISON: No exams were available for comparison FINDINGS: LUNGS: Clear. No pleural abnormality seen. HEART: Normal size. Mildly enlarged. Status post CABG. AORTA: Normal diameter. Aortic valve prosthesis. BONES: Sternal wires. Soft tissues: Unremarkable. IMPRESSION: No acute findings. DATA REPOSITORY: RADIATION DOSE DELIVERED:
--- NOTE | 2023-03-08 06:14 | DI.VRAD_ITS ---
PROCEDURE INFORMATION: Exam: CT Head Without Contrast Exam date and time: 03/08/2023 5:33 AM Age: 78 years old Clinical indication: Stroke-like symptoms; Dizziness/giddiness; Additional info: Dizzy TECHNIQUE: Imaging protocol: Computed tomography of the head without contrast. Radiation optimization: All CT scans at this facility use at least one of these dose optimization techniques: automated exposure control; mA and/or kV adjustment per patient size (includes targeted exams where dose is matched to clinical indication); or iterative reconstruction. Other technique: STROKE PROTOCOL was implemented. COMPARISON: No relevant prior studies available. FINDINGS: Brain: No acute hemorrhage. No patterns reflective of acute ischemia. Areas of white matter hypoattenuation are most suggestive of but not specific for chronic microvascular disease. Milian-white differentiation well preserved. Sulci and subarachnoid cisterns non effaced. Cerebral ventricles: No ventriculomegaly. Paranasal sinuses: Minimal right maxillary in sinus mucoperiosteal thickening. Mastoid air cells: Visualized mastoid air cells are well aerated. Orbital cavities: Right lens implant. Bones/joints: Unremarkable. No acute calvarial fracture. Soft tissues: Unremarkable. Vasculature: Supraclinoid carotid calcification. IMPRESSION: No acute intracranial pathology. ASPECTS ([place] Stroke Program Early CT Score) is 10. Head CT may in not demonstrate signs of acute early ischemia. Could consider brain MRI. Dictated and Authenticated by: Aleksandar Layne MD. Ordering:RADAMES Sena MD
[2023-03-08 06:49] LABS: D-Dimer 1181 ng/mlFEU (<500)
--- NOTE | 2023-03-08 07:12 | DI.VRAD_ITS ---
PROCEDURE INFORMATION: Exam: XR Chest Exam date and time: 03/08/2023 6:36 AM Age: 78 years old Clinical indication: Dyspnea TECHNIQUE: Imaging protocol: Radiologic exam of the chest. Views: 1 view. COMPARISON: CT THORAX CTA 10/18/2021 2:59 PM FINDINGS: Tubes, catheters and devices: Overlying monitoring leads. Lungs: Lungs clear. Pleural spaces: No pleural effusion. No pneumothorax. Heart/Mediastinum: Pericardiac post CABG surgical changes. Aortic valve prosthesis. Cardiac silhouette not enlarged. Bones/joints: Sternotomy wires. IMPRESSION: No acute findings. Dictated and Authenticated by: Aleksandar Layne MD. Ordering:RADAMES Sena MD
[2023-03-08 07:21] LABS: NT-proBNP 132 pg/mL (<300)
[2023-03-08] MEDS: Normal Saline Flush 10 ML SYR IJ (07:38)
[2023-03-08] MEDS: Normal Saline - Diluent 50 ML VIAL IJ (07:41)
[2023-03-08] MEDS: Omnipaque 350 MG/ML 500 ML BTL-Imaging package 100 ML IJ (07:42)
--- NOTE | 2023-03-08 07:50 | DI.CT_ITS ---
Exam(s) CT CHEST PE CTA EXAM: CT CHEST PE CTA CLINICAL HISTORY: dyspnea. TECHNIQUE: Imaging Protocol: Axial CT angiography was performed with multi-slice acquisition and mu lti-planar reconstructions as well as axial, coronal and sagittal MIP reconstructions. CONTRAST MATERIAL: Intravenous: Omnipaque 350 Contrast volume:100 ml COMPARISON: CT CT THORAX CTA from 10/18/2021 FINDINGS: Pulmonary Arteries: No evidence of filling defect to suggest pulmonary emboli. Tracheobronchial tree: Patent where visualized. Mediastinum and Frieda: No dominant adenopathy or fluid collection. Pulmonary parenchyma: Mild respiratory motion and dependent changes. No consolidation or dominant m easurable mass. Pleura: No effusion or pneumothorax. Heart: The heart is moderately dilated. Mild coronary artery calcifications are seen. Aorta: Aortic valve prosthesis. Stable dilatation of ascending aorta 4.4 cm. No dissection. No ane urysm. No dissection. Upper abdomen: Unremarkable. Bones: Sternal wires.. Tubes, Catheters, and Lines: IMPRESSION: No evidence of pulmonary embolism or other acute abnormality. RADIATION DOSE DELIVERED: 335.72mGy.cm Total DLP DATA REPOSITORY: All CT scans at this facility are submitted to the National Radiology Data Registry (NRDR) Dose Index Registry (DIR) with the [employer] (ACR). RADIATION OPTIMIZATION: All CT scans at this facility use at least one of these dose optimization te chniques: automated exposure control; mA and/or kV adjustment per patient size (includes targeted exa ms where dose is matched to clinical indication); or iterative reconstruction.
--- NOTE | 2023-03-08 08:45 | W.EDPROG ---
Date of service: 03/08/23 Time of Service: 08:45 Medical Decision Making Pt signed out to me pending cta of the chest which was read as negative by Dr. Spicer and myself. Pt stable, has no complaints now and feels well, ambulating with normal gait unassisted. He did feel better after meclizine so suspect vertigo, although also could be he's over medicated on the metoprolol as his HR has been in the low50's, advised pt to discuss with his pcp if they feel this should be adjusted. He is stable for d/c, advised to f/u with pcp and return precautions given Sign Out Sign Out Data: Sign Out Comment: Patient presents to the emergency department with dizziness and diaphoresis who had labs done with an elevated D-dimer and a CT PE is pending POCUS exam and troponin as well as beta drug peptide are all negative. Patient feels fine after meclizine was likely he has experienced vertigo. Last updated by Nathen Underwood MD at 03/08/23 07:31 Discharge Plan Disposition Patient Disposition: Home Condition: Stable Discharge Details Clinical Impression: Balance problem Primary Care Provider: Hira Davis ED Provider: Ba Herrera Home Meds and New Rx's Prescriptions: New meclizine 25 mg tablet 25 mg PO BID PRN (Reason: dizziness) Qty: 30 0RF Continued aspirin 81 mg tablet,chewable 81 mg PO DAILY lansoprazole 15 mg capsule,delayed release(DR/EC) 15 mg PO DAILY atorvastatin 80 mg tablet 80 mg PO DAILY Qty: 90 4RF metoprolol succinate 25 mg tablet extended release 24 hr 25 mg PO DAILY Qty: 90 4RF amoxicillin 500 mg capsule 2,000 mg PO PRN PRN (Reason: for dental work) Discharge Instructions Additional Instructions: Your blood work and cat scans did not show concerning findings at this time You improved with fluids and also meclizine Follow up with your primary care provider within 1-2 weeks. If you have similar episodes discuss if your metoprolol dose should be adjusted If you feel more ill, have worsening symptoms or new symptoms such as chest pain or difficulty breathing return to the emergency department
--- NOTE | 2023-03-08 09:15 | DI.VRAD_ITS ---
PROCEDURE INFORMATION: Exam: CTA Chest With Contrast Exam date and time: 03/08/2023 7:45 AM Age: 78 years old Clinical indication: Dyspnea TECHNIQUE: Imaging protocol: Computed tomographic angiography of the chest with contrast. Exam focused on the arteries. 3D rendering (Not supervised by radiologist): MIP and/or 3D reconstructed images were created by the technologist. Radiation optimization: All CT scans at this facility use at least one of these dose optimization techniques: automated exposure control; mA and/or kV adjustment per patient size (includes targeted exams where dose is matched to clinical indication); or iterative reconstruction. Contrast material: OMNI-PAQUE 350; Contrast volume: 100 ml; Contrast route: INTRAVENOUS (IV); COMPARISON: CT THORAX CTA 10/18/2021 2:59 PM FINDINGS: Limitations: Mild motion artifact. Pulmonary arteries: No pulmonary embolus is appreciated. Aorta: Arterial calcifications. Ascending thoracic aortic aneurysm measuring approximately 4.7 cm. Lungs: Right apical nodule, also seen previously. Atelectasis/scarring in the lungs. Pleural spaces: No pleural effusion. Heart: Cardiomegaly. Coronary arteries: Coronary artery calcifications. Lymph nodes: Nonspecific mediastinal lymph nodes. Diaphragm: Tiny hiatal hernia. Bones/joints: No acute pertinent abnormality seen. Soft tissues: No acute pertinent abnormality seen. IMPRESSION: 1. No acute findings to explain reported symptoms. 2. Nonacute findings as outlined above. Dictated and Authenticated by: Linh Cantor MD. Ordering:RADAMES Sena MD
== END 2023-03-08 09:03 | disposition home or self-care (01) ==
PROVIDERS: Emergency Medicine Emergency Medical Services; Emergency Provider Emergency Medicine; PCP Family Medicine
DX: R42 Dizziness and giddiness (principal); R19.7 Diarrhea, unspecified; R11.2 Nausea with vomiting, unspecified; R53.1 Weakness; R00.1 Bradycardia, unspecified; R06.02 Shortness of breath; Z95.1 Presence of aortocoronary bypass graft; Z79.82 Long term (current) use of aspirin; Z87.891 Personal history of nicotine dependence
CPT/HCPCS: 71275; 80053; 93005; 93308; 96360; 99285; 70450; 71045; 83735; 83880; 84484; 85025; 85379; 93010; 99283; J2405

== ENCOUNTER → 2023-06-25 09:26 | Outpatient (BNVA) | payer MEDICARE, SELFPAY | PROVIDERS: PCP Family Medicine; Visit Provider Internal Medicine Cardiovascular Disease | DX: Z09 Encounter for follow-up examination after completed treatment for conditions other than malignant neoplasm (principal); Z95.3 Presence of xenogenic heart valve; Z86.79 Personal history of other diseases of the circulatory system; Z95.1 Presence of aortocoronary bypass graft; Z98.890 Other specified postprocedural states | CPT/HCPCS: 99213 ==

== ENCOUNTER 2023-09-16 15:37 | Outpatient (REF) | payer MEDICARE, SELFPAY ==
[2023-09-16 15:00] LABS: HCT 42.8 % (40.0-50.0); HGB 14.8 g/dL (13.5-17.5); MCH 31.9 pg (27.0-33.0); MCHC 34.6 % (32.0-36.0); MCV 92 fL (80-95); MPV 9.8 fL (8.0-11.0); Platelet Count 245 10^3/uL (130-400); RBC 4.64 10^6/uL (4.36-5.78)
[2023-09-16 15:31] LABS: ALT 29 U/L (16-63); AST 22 U/L (15-37); Albumin 3.4 g/dL (3.4-5.0); Alkaline Phosphatase 54 U/L (46-116); Anion Gap 4.3 mmol/L (3-11); BUN 12 mg/dL (7-18); Bilirubin, Total 0.5 mg/dL (0.2-1.0); CO2 29.7 mmol/L (21.0-32.0); CREATININE 0.7 mg/dL (0.70-1.30); Calcium 8.8 mg/dL (8.5-10.1); Calculated LDL 101 mg/dL (<100); Chloride 106 mmol/L (98-107); Cholesterol 180 mg/dL (<200); Estimated GFR 95.49 (mL/min/1.73m2); Glucose 92 mg/dL (74-106); HDL Cholesterol 53 mg/dL (40-60); Potassium 4.2 mmol/L (3.5-5.1); Sodium 140 mmol/L (136-145); Total Protein 6.6 g/dL (6.4-8.2); Triglyceride 133 mg/dL (<150)
== END 2023-09-16 15:38 | disposition home or self-care (01) ==
LOC: NCHCN 15:37
PROVIDERS: PCP Family Medicine; Visit Provider Family Medicine
DX: Z00.00 Encounter for general adult medical examination without abnormal findings (principal)
CPT/HCPCS: 80053; 80061; 85027

== ENCOUNTER → 2024-01-09 10:49 | Outpatient (BNVA) | payer MEDICARE, SELFPAY | PROVIDERS: PCP Family Medicine; Referring Provider Family Medicine; Visit Provider Physical Therapy Assistant | DX: Z12.11 Encounter for screening for malignant neoplasm of colon (principal); Z86.010 Personal history of colon polyps; K21.9 Gastro-esophageal reflux disease without esophagitis | CPT/HCPCS: 99213 ==

== ENCOUNTER 2024-01-29 06:16 | Day surgery (SDC) | payer MEDICARE, SELFPAY ==
[2024-01-29 06:39] VITALS: BP 116/78; PULSE 64; RESP 18; TEMP 36.4; O2SAT 96
[2024-01-29] MEDS: Lactated Ringers 1,000 ML 80 ML IV (06:51)
--- NOTE | 2024-01-29 07:09 | ANES.PREOP_ITS ---
General Info Date of Service Date Performed: 01/29/24 Height: 6 ft 1 in Weight: 78.9 kg Body Mass Index (BMI): 22.9 Surgical Procedure: Operation Date: 01/29/24 07:35 Proposed Procedure Side Surgeon p Colonoscopy/Gastroscopy Que Bloom MD Actual Procedure Side Surgeon p Colonoscopy/Gastroscopy Que Bloom MD Meds Allergies and Home Medications Allergies Allergy/AdvReac Type Severity Reaction Status Date / Time No Known Allergies Allergy Verified 01/29/24 06:37 Home Medication Medication Instructions Recorded aspirin 81 mg chewable tablet 81 mg PO DAILY 05/20/18 atorvastatin 80 mg tablet 80 mg PO DAILY #90 tabs 09/16/22 amoxicillin 500 mg capsule 2,000 mg PO PRN PRN for dental work 03/08/23 meclizine 25 mg tablet 25 mg PO BID PRN dizziness #30 tabs 03/08/23 metoprolol succinate 25 mg 25 mg PO DAILY 11/18/23 tablet,extended release 24 hr bisacodyl 5 mg tablet,delayed 5 mg PO ONCE #4 tabs 01/09/24 release (Dulcolax (bisacodyl)) polyethylene glycol 3350 17 17 g PO DAILY #238 grams 01/09/24 gram/dose oral powder famotidine 40 mg tablet 40 mg PO DAILY 01/28/24 Current Visit Medications: Current Medications Generic Name Dose Route Start Last Admin Trade Name Freq PRN Reason Stop Dose Admin Ringer's Solution 1,000 mls @ 80 mls/hr 01/29/24 06:00 01/29/24 06:51 IV 01/29/24 23:59 80 mls/hr INFUSION KENDAL Administration IV Miscellaneous Supplies 1 each 01/29/24 06:00 Iv Access IV 01/29/24 23:59 DIRECTED KENDAL Sodium Chloride 0 ml 01/29/24 06:00 Normal Saline Flush 10 Ml Syr IV 01/29/24 23:59 PRN PRN Sodium Chloride 0 ml 01/29/24 06:00 Normal Saline 10 Ml Vial IJ 01/29/24 23:59 DIRECTED PRN Sterile Water 0 ml 01/29/24 06:00 Water,Injection,Sterile 10 Ml Vial IJ 01/29/24 23:59 DIRECTED PRN PFSH Active Problems Active Problems: Problem Status Onset Code S/P aortic valve replacement with bioprosthetic valve Z95.3 Jock itch B35.6 Multiple nevi D22.9 Urinary incontinence without sensory awareness N39.42 Seborrheic keratoses L82.1 Post-nasal drainage R09.82 Leaking of urine R32 Decreased hearing of left ear H91.92 Sleep disorder G47.9 Migraine without aura 07/09/13 G43.009 Hyperlipidemia 07/09/13 E78.5 H/O coronary artery bypass surgery Z95.1 H/O aortic aneurysm repair Z98.890, Z86.79 Gastroesophageal reflux disease 07/09/13 K21.9 Medical History Medical History Dupuytren's disease of palm Tinea cruris Plantar fascial fibromatosis Inguinal hernia Diverticulosis Inguinal hernia of left side without obstruction or gangrene 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 (~10/2011) ASCENDING AORTA & AORTIC ROOT REPLACEMENT (~11/2011) 11/2011 [facility] [place] surgical procedure a. replacement of ascending aorta with aortic valve replacement with triple bypass three years ago b. ganglion cyst removal c. hand surgery d. Achilles tendon surgery e. tonsillectomy and adenoidectomy f. vasectomy g. colonoscopy Tobacco Smoking/Tobacco Use Status: Former Tobacco Use Passive smoking exposure: Yes Second hand exposure: No Alcohol Alcohol Intake: current Alcohol intake frequency: a few times a month Alcohol type: beer and hard liquor Substance Use Substance use: Never Substance use type: does not use Vital Signs and Lab Results Vital Signs Most Recent Vital Signs in EMR: Most Recent Vital Signs Temp Pulse Resp BP Pulse Ox 36.4 C L 64 18 116/78 96 01/29/24 06:39 01/29/24 06:39 01/29/24 06:39 01/29/24 06:39 01/29/24 06:39 Lab Results Blood Type / Crossmatch: No Data to Display Complete Blood Count: No Data to Display Complete Metabolic Panel: No Data to Display Liver Function Panel: No Data to Display Coagulation Panel: No Data to Display Cardiac Panel: No Data to Display Arterial Blood Gas: No Data to Display Venous Blood Gas: No Data to Display Pancreas Panel: No Data to Display Thyroid Panel: No Data to Display Infectious Disease: No Data to Display Blood Cultures: No Data to Display Toxicology Panel: No Data to Display Imaging and Studies Imaging and Studies Study information below may be from another EMR and interpreted by another provider. Please see original notes in EMR for more complete details. EKG Summary: DATE/TIME OF SERVICE: 03/08/23 0500 : 1945 PERFORMING LOCATION: ER APPROVED REPORT Exam: Resting ECG Reason for Exam: dizzy Patient Location: HR:57 bpm ECG Measurements Heart Rate 57 AXIS [place] 179 P 22 QRSd 120 QRS 76 QT 509 T48 QTc 495 Conclusion Sinus bradycardia...rate< 60 Nonspecific intraventricular conduction delay...QRSd >115mS, not LBBB/RBBB Echocardiogram Summary: Date of Exam: 11/10/21 Sex: M Admission Date: 11/10/21 : 1945 Age: 76 APPROVED REPORT EXAM: Comprehensive 2D, Doppler, and color-flow Echocardiogram Patient Location: Out-Patient Maintenance Assistant: Felicita Tatum RDCS (AE) Indications: Bioprosthetic aortic valve, Thoracic aortic aneurysm repair Other Information Study Quality: Adequate Conclusion Normal left ventricular wall thickness and chamber size. Estimated ejection fraction is approximately 60%. Wall motion is normal Normal right ventricular size and systolic function Both atria are mildly dilated There is a bioprosthetic aortic valve present. Mean gradient is 8.5 mmHg. There is no aortic regurgitation The ascending aorta is not well visualized Carotid Artery Summary:: Date of Exam: 10/24/18 Sex: M Admission Date: 10/24/18 : 1945 Age: 73 Exam(s) a US:US carotid SYMPTOMS/DIAGNOSIS: AORTIC VALVE STENOSIS, REPLACEMENT, CAROTID BRUIT, ASSESS DEGREE OF CAROTID STENOSIS, OTHER SYMPTOMS AND SIGNS INVOLVING THE CIRCULATORY SYSTEM, I35.0, R09.89 CAROTID ULTRASOUND: Routine examination was performed. On the right, there is marked calcific plaque seen in the bulb and proximal internal carotid artery. No hemodynamically significant velocity elevations are seen. The right vertebral artery is antegrade. On the left, no hemodynamically significant velocity elevations are present. The left vertebral artery is antegrade. IMPRESSION: No evidence of hemodynamically significant cervical carotid artery stenosis. Anesthesia Assessment and Plan Anesthesia History Personal History: No History of Anesthesia Complications Family History: No Family History of Anesthesia Complications Exercise Tolerance Exercise Tolerance: Metabolic Equivalents>4 Pertinent Negatives Pertinent Negatives: No Symptoms of GERD, No Major Pulmonary Symptoms or Complaints and No History of CVA/TIA Cardiac & Pulmonary Exam Cardiac Exam: Normal S1/S2 Heart Sounds Pulmonary Exam: Clear Bilateral Breath Sounds Implantable Cardiac Device Does patient have a Pacemaker or an ICD?: No Airway Exam Known Difficult Airway: No Mallampati Class: 2 Mouth Opening: Normal (> 3cm) Thyromental Distance: Greater than 3 cm Neck Range of Motion: Full ROM Neck Circumference: Normal Teeth Condition: Normal Dentition ASA Classification ASA Score: ASA 3 Emergency Case?: No NPO Status NPO Status: NPO Clears >2 hours, Solids >8 hours Anesthesia Plan Resuscitation Status: Full Code Anesthesia Technique: General Anesthesia Airway Planned: Natural Airway Monitors Used: Standard Monitors
[2024-01-29 07:10] VITALS: BMI 22.9
--- NOTE | 2024-01-29 07:48 | STOM_PTH ---
PATIENT: Walt Doyle LOC: [facility] U#:[id number] AGE/SX: 79/M ROOM: RE01/29/[address]: Que Bloom : 1945 BED: DIS: 01/29/2024 SPEC #: [id number] RECD: 01/29/24 12:50 STATUS: [facility] #: [id number] KARI: 01/29/24 07:[address]: Que Bloom DEPT: Surgical Specimen RECD BY: Floresita Pacheco ENTERED: 01/29/24 12:52 SP TYPE: STOMACH OTHR DR: Hira Davis Tissues: 1 - STOMACH BIOPSY 2 - STOMACH BIOPSY 3 - ESOPHAGUS BIOPSY Procedures: GROSS AND MICRO LEVEL 4 Comments: [id number]
[2024-01-29 08:21] VITALS: BP 112/68; PULSE 61; RESP 16; TEMP 36.5; O2SAT 95
--- NOTE | 2024-01-29 08:26 | W.PM.ENDDOP ---
Date of service: 01/29/24 Time of Service: 08:26 Endoscopy Report PROCEDURE DESCRIPTION: PROCEDURES PERFORMED: 1. EGD with biopsies 2. Cold forceps polypectomy PREOPERATIVE DIAGNOSIS: Reflux POSTOPERATIVE DIAGNOSIS: Gastric polyps, small (subcentimeter) type I sliding hiatal hernia (Hill grade 1), distal esophagitis (LA grade B), benign esophageal stricture SURGEON: Tayla Bloom MD INDICATION FOR PROCEDURE: 79-year-old man who has persistent reflux symptoms despite antisecretory therapy. FINDINGS: D2/D3 = normal D1/bulb = normal - no ulcers or inflammation Pylorus = normal Antrum = normal appearance, no ulcers, cold forceps biopsies were taken to rule out H. pylori routinely Body = normal appearance Fundus = normal, a few benign?appearing polyps, 1 was removed with cold forceps technique to confirm benign histology Cardia = normal Hiatus = very small (less than 1 cm) slide at the hiatus consistent with a sliding hiatal hernia. Hill grade 1 hiatal defect. Overall minimal and subtle Distal esophagus = about 2-3 cm of distal esophagus is diffusely inflamed with mild/small mucosal breaks circumferentially. There is then about 1 cm circumferential benign?appearing stricture. There is no evidence of Bernstein's visually and the esophagus proximal to the stricture appears normal. Cold forceps biopsies were taken in these areas including the stricture. Mid esophagus = normal Proximal esophagus/hypopharynx/vocal cords = normal SURVEILLANCE-INTERVAL/FOLLOW-UP: Pending biopsy results. Management strategies include more aggressive anti-secretory medical management or antireflux surgery. The hiatal hernia is very small making it hard to believe it is the problem. Specimens: Yes EBL: Minimal COMPLICATIONS: None Procedure in detail: The patient gave written consent and was in agreement with the indications, the potential risks as well as the benefits of the procedure. The patient was taken to the endoscopy suite and laid on their left side. Anesthesia was given which was tolerated well. We performed a timeout and we are in agreement I started the procedure. A well-lubricated endoscope was gently and carefully advanced down the esophagus, into the stomach the scope was and through the pylorus into the duodenum. The scope was then slowly withdrawn with the above-noted findings/interventions. The patient tolerated the procedure well and was then turned for colonoscopy (see separate procedure note).
[2024-01-29 08:30] VITALS: BP 100/67; PULSE 58; RESP 16; TEMP 36.5; O2SAT 95
--- NOTE | 2024-01-29 08:31 | COLE_ITS ---
Date of service: 01/29/24 Time of Service: 08:31 Colonoscopy Report Procedure Description: PROCEDURES PERFORMED: 1. 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 Colonoscopy since then have not shown any new polyps. He does not have any symptoms. He has no family history of colon cancer. FINDINGS: Terminal ileum was normal. No cecal polyp. No new polyps. Minimal/mild, scattered diverticular changes throughout the sigmoid colon only. No inflammation anywhere. Mild but diffuse internal hemorrhoid disease. SURVEILLANCE interval/FOLLOW-UP: The last 2 colonoscopies have been normal/negative and the patient is 79 years old. I think another colonoscopy could be considered in 5 to 7 years if he is still healthy with a good life expectancy at that time. The decision should be made at that time rather than now. SPECIMENS: None EBL: Minimal COMPLICATIONS: None QUALITY of prep: Excellent Procedure in detail: The patient gave written consent and was in agreement with the indications, the potential risks as well as the benefits of the procedure. He was turned from upper endoscopy (see separate procedure note) and anesthesia was continued and I started the colonoscopy portion of the exam. Digital rectal and visual examination was performed and grossly within normal limits. A well-lubricated flexible colonoscope was then introduced and passed without any notable difficulty all the way to the cecum identified by the ileocecal valve and the appendiceal orifice. I inspected the cecum carefully and no recurrent polyp is noted. The terminal ileum was intubated deeply and appeared completely normal. The scope was then slowly withdrawn with the above- noted findings. The patient tolerated the procedure well and was taken to the PACU in hemodynamically stable condition.
--- NOTE | 2024-01-29 08:36 | W.PM.DSUDISC ---
Date of service: 01/29/24 Time of Service: 08:36 Discharge Plan Disposition Patient Disposition: Home Condition: Good Discharge Details Attending Provider: Que Bloom Primary Care Provider: Hira Davis Home Meds and New Rx's Prescriptions: No Action aspirin 81 mg tablet,chewable 81 mg PO DAILY atorvastatin 80 mg tablet 80 mg PO DAILY Qty: 90 4RF bisacodyl [Dulcolax (bisacodyl)] 5 mg tablet,delayed release (DR/EC) 5 mg PO ONCE Qty: 4 0RF polyethylene glycol 3350 17 gram/dose powder 17 g PO DAILY Qty: 238 0RF metoprolol succinate 25 mg tablet extended release 24 hr 25 mg PO DAILY amoxicillin 500 mg capsule 2,000 mg PO PRN PRN (Reason: for dental work) meclizine 25 mg tablet 25 mg PO BID PRN (Reason: dizziness) Qty: 30 0RF famotidine 40 mg tablet 40 mg PO DAILY Patient Comments: TAKE ONE TABLET BY MOUTH EVERY DAY Discharge Instructions Additional Instructions: FINDINGS: On upper endoscopy you have some inflammation in your esophagus that is related to acid reflux disease. It has caused some mild scar tissue called a stricture. You should follow-up with your PCP to discuss further about possibly increasing your medications. Alternatively, antireflux surgery might be an option to consider and if you wish to discuss this you can schedule an elective, outpatient follow-up visit in the surgical office. On colonoscopy, there was no evidence of recurrent polyp in your cecum. No new polyps were found. Whether or not to have another colonoscopy should be decided in 5 to 7 years and at that time, if you remain healthy with a good life expectancy, then you can consider doing another one. Stand Alone Forms: Anesthesia Discharge Inst., DSU Post EGD Instructions, Colonoscopy Post Instructions, Lily Ashford (DSU) Activity:: Activity as Tolerated Diet:: As Tolerated
--- NOTE | 2024-01-29 10:49 | W.ANESPOSTOP ---
Postoperative Evaluation Date, Time and Location Date Performed: 01/29/24 Time Performed: 08:32 Patient Location: Day Surgery Unit Vital Signs Most Recent Imported Vital Signs: Most Recent Vital Signs Temp Pulse Resp BP Pulse Ox 36.5 C 58 L 16 100/67 95 01/29/24 08:30 01/29/24 08:30 01/29/24 08:30 01/29/24 08:30 01/29/24 08:30 Pain Score Most Recent Pain Score: Most Recent Pain Score Pain Level 0 01/29/24 08:50 Assessment Mental Status: Awake (Alert & Oriented to Patient Baseline) Airway and Respiratory Function: Patent airway with normal (patient baseline) respiratory exam Cardiovascular Function: Hemodynamically Stable Hydration Status: Adequately Hydrated Nausea & Vomiting: No Nausea or Vomiting Pain: Pt. Denies Any Pain Peripheral Nerve Block: Patient did not receive a nerve block
== END 2024-01-29 09:24 | disposition home or self-care (01) ==
PROVIDERS: PCP Family Medicine; Visit Provider Student in an Organized Health Care Education/Training Program
PROC: (CPT 43239; principal; 2024-01-29 07:30)
DX: Z12.11 Encounter for screening for malignant neoplasm of colon (principal); Z95.1 Presence of aortocoronary bypass graft; I35.0 Nonrheumatic aortic (valve) stenosis; K21.00 Gastro-esophageal reflux disease with esophagitis, without bleeding; K44.9 Diaphragmatic hernia without obstruction or gangrene; K31.7 Polyp of stomach and duodenum; K57.30 Diverticulosis of large intestine without perforation or abscess without bleeding; K64.8 Other hemorrhoids
CPT/HCPCS: 43239; G0121; 00123; 88305; J2704

== ENCOUNTER 2024-06-24 02:30 | Outpatient (CLI) | payer MEDICARE, SELFPAY ==
--- NOTE | 2024-06-24 07:30 | DI.US_ITS ---
APPROVED REPORT EXAM: Comprehensive 2D, Doppler, and color-flow Echocardiogram Patient Location: Out-Patient Railcar Brake Operator: Felicita Tatum RDCS (AE) Indications: Check aortic valve, S/P AVR Bioprosthetic, CABG Other Information Study Quality: Adequate. Technically limited study due to body habitus, technically limited subcostal imaging. . Conclusion Normal left ventricular wall thickness and chamber size. Ejection fraction is 60%. Wall motion is n ormal Normal right ventricular size and function Both atria are normal in size There is a bioprosthetic aortic valve replacement with a mean gradient of 12 mmHg. No aortic regurgi tation Wall motion Left Ventricle The left ventricle is normal size. The left ventricular systolic function is normal. The left ventric ular ejection fraction is within the normal range. There is normal left ventricular wall thickness. T here is normal LV segmental wall motion. There is no ventricular septal defect visualized. LVEF is 60 %. Right Ventricle The right ventricle is normal size. The right ventricular systolic function is normal. Atria The left atrium size is normal. The right atrium size is normal. The interatrial septum is intact wit h no evidence for an atrial septal defect. Aortic Valve Mean gradient is 12 mmHg No aortic regurgitation is present. Bioprosthetic aortic valve is present. Mitral Valve The mitral valve is normal in structure. No evidence of mitral valve stenosis. Trace to mild mitral r egurgitation. Tricuspid Valve The tricuspid valve is normal in structure. There is no tricuspid valve stenosis. Trace tricuspid reg urgitation. Pulmonic Valve The pulmonary valve is normal in structure. There is no pulmonic valvular stenosis. There is no pulmo james valvular regurgitation. Great Vessels The aortic root is normal in size. Ascending aorta is not well visualized. Aortic arch is not well vi sualized. The IVC was not visualized. Technically limited subcostal imaging. Pericardium Technically limited subcostal imaging. 2D Dimensions IVSD d PLAX 1.04 cm M: 0.6-1.2 Ao Root d 3.53 cm M: 3.1 - 3.7 LVPW d PLAX 1.01 cm M: 0.6 - 1.2 LVID d PLAX 5.56 cm M: 4.2 - 5.8 LVDs 3.76 cm M: 2.5 - 4.0 LV EF Teichholz 60.1 % FS 32.40 % LV EDV (Teich) 151.3 mL LV ESV (Teich) 60.4 mL Auto EF LV EDV A4C 140.7 mL LV EDV A2C 177.8 mL LV EDV BP 155.5 mL LV ESV A4C 57.7 mL LV ESV A2C 70.7 mL LV ESV BP 63.9 mL LVEF(%) A4C 59.0 % LVEF(%) A2C 60.2 % LVEF(%) BP 58.9 % LV SV A4C 82.9 ml LV SV A2C 107.0 ml LV SV BP 91.6 ml LV CO A4C 5.0 L/min LV CO A2C 6.1 L/min LV CO BP 5.6 L/min HR A4C 59.90 BPM HR A2C 57.42 BPM LV EDV Index (BP) LA Volume LA Length A4C 5.5 cm LA Length A2C 5.6 cm LA Area A4C s 21.01 cm2 LA Area A2C s 24.35 cm2 LA Vol A4C A-L 68.51 mL LA Vol A2C A-L 90.02 mL LA Vol Biplane A-L 79.4 mL LA Vol/BSA A4C A-L LA Vol/BSA A2C A-L LA Vol/BSA BP A-L 38.5 mL/m2 LA Vol A4C MOD 62.2 mL LA Vol A2C MOD 84.1 mL LA Vol BP MOD 72.6 mL RA Volume RA Area A4C 16.4 cm2 RA ESV A4C (A-L) 44.1mL RA Vol/BSA A4C A-L RA Length A4C 5.2 cm RA ESV A4C (MOD) 40.9mL LV Diastology MV E' medial 0.071 (>0.07 m/s) MV E Vmax 0.76 (0.4-1.3 m/s) MV E/E' MED 10.68 (<14) MV A Vmax 0.50 (0.4-1.3 m/s) MV E' lateral 0.170 (>0.1 m/s) E/A Ratio 1.5 MV E/E' LAT 4.48 (<14) MV E' Average 0.121 m/s MV E/E'(average) 6.32 Aortic Valve AoV Vmax 2.32 m/s LVOT Vmax 1.11 m/s AoV Peak Grad 21.5 mmHg LVOT Peak Grad 4.9 mmHg AoV Area (Vmax) 1.70 cm2 LVOT VTI 0.256 m AoV VTI 0.576 m LVOT Mean Grad 2.8 mmHg AoV Mean Dewayne. 1.59 m/s LVOT SV 91.12 mL AoV Mean Grad 11.8 mmHg LVOT Diam s 2.10 cm AoV Area (VTI) 1.58 cm2 AV Regurg Peak Gr. 21.50 mmHg Velocity Ratio 0.48 Mitral Valve MV DT 251 (160-240 msec) MV Vmax TIPS 0.91 m/s MV Mean Grad 1.2 (<2mmHg) MV VTI 0.263 m Pulmonary Valve PV Vmax 0.99 (0.5-1.5 m/s) RVOT Vmax 0.71 m/s PV Peak Grad 4.0 mmHg RVOT Peak Gr. 2.0 mmHg PV Mean Dewayne 0.73 m/s RVOT VTI 0.159 m PV Mean Grad 2.4 mmHg RVOT Mean Gr. 1.3 mmHg Tricuspid Valve TV S' 0.11 m/s TR Vmax 2.41 m/s TR Peak Grad 23.3 mmHg
== END 2024-06-24 02:50 ==
LOC: DI 02:31
PROVIDERS: PCP Family Medicine; Visit Provider Internal Medicine Cardiovascular Disease
DX: Z95.3 Presence of xenogenic heart valve (principal); Z95.1 Presence of aortocoronary bypass graft; Z98.890 Other specified postprocedural states; Z86.79 Personal history of other diseases of the circulatory system
CPT/HCPCS: 93306

== ENCOUNTER → 2024-06-30 09:23 | Outpatient (BNVA) | payer MEDICARE, SELFPAY | PROVIDERS: PCP Family Medicine; Visit Provider Internal Medicine Cardiovascular Disease | DX: Z95.3 Presence of xenogenic heart valve (principal); Z95.1 Presence of aortocoronary bypass graft | CPT/HCPCS: 99213 ==

== ENCOUNTER 2024-12-09 06:02 | Emergency (ER) | payer MEDICARE, SELFPAY ==
[2024-12-09] VITALS (42 sets, daily range): BP systolic 102–158; BP diastolic 58–83; PULSE 58–70; RESP 12–24; TEMP 36.4; O2SAT 92–100
--- NOTE | 2024-12-09 06:00 | RT.EKG_ITS ---
APPROVED REPORT Exam: Resting ECG Reason for Exam: cheast pain Patient Location: E HR:62 bpm ECG Measurements Heart Rate 62 AXIS [place] 178 P 63 QRSd 115 QRS 83 QT 443 T -8 QTc 451 Conclusion Sinus rhythm...normal P axis, V-rate 60- 99 Nonspecific intraventricular conduction delay...QRSd >115mS, not LBBB/RBBB no ST segment or T wave abnormalities to suggest occlusive FL.
--- NOTE | 2024-12-09 06:05 | ED.GENADUL_ITS ---
Discharge Plan Discharge Details Chief Complaint: Abd Prob Primary Care Provider: Hira Davis ED Provider: Lizzette Briones Home Meds and New Rx's Prescriptions: No Action aspirin 81 mg tablet,chewable 81 mg PO DAILY atorvastatin 80 mg tablet 80 mg PO DAILY Qty: 90 4RF metoprolol succinate 25 mg tablet extended release 24 hr 25 mg PO DAILY amoxicillin 500 mg capsule 2,000 mg PO PRN PRN (Reason: for dental work) famotidine 40 mg tablet 40 mg PO DAILY Patient Comments: TAKE ONE TABLET BY MOUTH EVERY DAY HPI General Mode of arrival: ambulatory . Date/Time Provider Initiated Documentation: 12/09/24 06:04 . Limitations to Documentation: no limitations . Information obtained by: patient . HPI Narrative: 79yo M with hx CABG, aortic valve replacement, aortic aneurysm repair, presenting with back, abdominal, and chest pain. Symptoms first started 2 days ago with low back pain. He had been using the chain saw and thought this caused his symptoms. Pain was low and central, did improve with heat packs. Yesterday back pain began to radiate alternately to each side. No numbness, tingling, or weakness in his legs, no bowel or bladder issues. Overnight last night began to have low abdominal pain, dull, moderate. Has been worsening since onset and moving upwards, now diffuse in his abdomen and also present substernally/in his chest. Worse with deep breathing. No shortness of breath. No numbness, tingling, or weakness in his upper extremities. While up to the bathroom felt flushed and nauseated and looked very pale. Did not vomit. This prompted him to come to the emergency department. The flushed and nauseated feeling has subs ided; the abdominal pain persists, back pain is still present, low-lumbar, and perhaps slightly worse than at onset. He is otherwise in his usual state of health with no fevers, chills, rash, dysuria, hematuria, LE edema, or other concerns. Related Data Home Medications ?Medication ?Instructions ?Recorded ?Confirmed aspirin 81 mg chewable tablet 81 mg PO DAILY 05/20/18 12/09/24 atorvastatin 80 mg tablet 80 mg PO DAILY #90 tabs 09/16/22 12/09/24 amoxicillin 500 mg capsule 2,000 mg PO PRN PRN for dental work 03/08/23 12/09/24 metoprolol succinate 25 mg 25 mg PO DAILY 11/18/23 12/09/24 tablet,extended release 24 hr famotidine 40 mg tablet 40 mg PO DAILY 01/28/24 12/09/24 Previous Rx's ?Medication ?Instructions ?Recorded atorvastatin 80 mg tablet 80 mg PO DAILY #90 tabs 09/16/22 Allergies Allergy/AdvReac Type Severity Reaction Status Date / Time No Known Allergies Allergy Verified 12/09/24 06:06 General THO: 3 Review of Systems Narrative: see HPI Exam Narrative Exam Narrative: General: Alert, no acute distress. Head: Normocephalic, atraumatic Neck: Trachea midline, ?Neck supple. ENT: ?MMM.? Cardiac: ?RRR, no murmurs appreciated. Equal radial pulses bilaterally. Resp: No respiratory distress. CTAB. Abd: ?Soft, non-distended, nontender. : ?No suprapubic tenderness. No CVA tenderness. Back: No midline tenderness. No paraspinal tenderness or spasm. Extremities: ?No deformities.? No peripheral edema. Neurologic: GCS 15. ? Moves all extremities freely against gravity Medical Decision Making 79yo M with hx CABG, aortic valve replacement, aortic aneurysm repair, presenting with back, abdominal, and chest pain. Started 2 days ago with low back pain, overnight diffuse abdominal pain initially lower than more upper and into his chest. Fell unwell while on the toilet this morning (flushed/nausated/pale) which prompted presentation to the ED. Those symptoms have resolved; abdominal/chest/back pain persists. Vital signs reassuring on arrival; physical exam with non-tender abdomen, lungs CTAB, equal radial pulses. History most concerning for acute coronary syndrome, aortic dissection, aortic aneurysm rupture, pulmonary embolism, mesenteric ischemia (pain out of proportion), surgical intrabdominal pathology, pyelonephritis, cholecystitis or other gallbladder pathology, etc. Will give 325 of ASA and 1g IV tylenol while awaiting results of workup. -EKG NSR, IVCD also present on prior 03/08/23, otherwise appropriate intervals, no ST segment or T wave abnormalities to suggest occlusive [place]. Some subtle inferior ST depressions. -Labs reviewed as below, CBC reassuring with no leukocytosis or anemia, CMP with no actionable abnormalities, Mg normal, lipase normal (unlikely pancreatitis), lacate normal (reassuring against mesenteric ischemia), PT & PTT normal, BNP normal (not suggestive of acute heart failure), initial troponin 8. Pending UA. -CTA independently reviewed; no clear dissection, aneurysm rupture, large saddle pulmonary embolus, or intrabdominal free fluid on my view (gallbladder does appear distended without clear wall thickening or pericholecystic stranding on my view), radiology read pending. Signed out to oncoming physician; disposition pending results. Quality:SDOH Health Related Social Needs: No Data to Display [facility]LY [facility] All Active Problems S/P aortic valve replacement with bioprosthetic valve (Acute) Jock itch (Acute) Multiple nevi (Acute) Urinary incontinence without sensory awareness (Acute) Seborrheic keratoses (Acute) Post-nasal drainage (Acute) Leaking of urine (Acute) Decreased hearing of left ear (Acute) Sleep disorder (Acute) Migraine without aura (Acute 07/09/13) ocular migraines Hyperlipidemia (Acute 07/09/13) H/O coronary artery bypass surgery (Acute) 11/2011 with pericardial AVR [facility] – [place] H/O aortic aneurysm repair (Acute) 11/2011 [facility] [place] Gastroesophageal reflux disease (Acute 07/09/13) Medical History Dupuytren's disease of palm Tinea cruris Plantar fascial fibromatosis Inguinal hernia Diverticulosis Inguinal hernia of left side without obstruction or gangrene 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) Plantar fasciitis (07/09/13) Personal history of colonic polyps 07/01/13 -tubular adenoma History of tobacco use (07/09/13) Family history of ischemic heart disease (07/09/13) Contracture of palmar fascia (07/09/13) multiple surgeries - also for ganglion cysts Thoracic aortic aneurysm Right inguinal hernia (09/29/14) Surgical History History of esophagogastroduodenoscopy (EGD) S/P colonoscopy (~01/2024) 09/30/2018 H/O hernia repair (07/08/18) left, Dr Daly Vasectomy Tonsillectomy and adenoidectomy REPAIR OF ACHILLES TENDON Repair of umbilical hernia (~09/2014) Repair of inguinal hernia HAND SURGERY 04/22; DR. 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 (~10/2011) ASCENDING AORTA & AORTIC ROOT REPLACEMENT (~11/2011) 11/2011 [facility] – [place] H/O surgical procedure a. replacement of ascending aorta with aortic valve replacement with triple bypass three years ago b. ganglion cyst removal c. hand surgery d. Achilles tendon surgery e. tonsillectomy and adenoidectomy f. vasectomy g. colonoscopy Family History Mother No problems noted. Father , AGE 62 Heart disease Sister No problems noted. Maternal Grandfather , age 84 Stroke Paternal Grandfather , age 62 Heart disease Maternal Grandmother , age 84 Stroke Son No problems noted. Daughter No problems noted. Paternal Grandmother , age 90 No problems noted. Social History Smoking/Tobacco Use Status: Former Tobacco Use tobacco type: cigarettes Quit Date: 09/09/72 Tobacco: How many years used: 6 Quit status: quit date established Second Hand Exposure: No Smoking risk assessment performed?: Yes Alcohol Intake: current Alcohol Intake frequency: a few times a month Alcohol type: beer and hard liquor Drug use: Never Substance use type: does not use Caregiver/Support person: No Household members: spouse Housing: house Communication Needs: Corrective Lenses Do you need help understanding health information?: Never Pets and animals: No Sexually active: Yes Do you think of yourself as: straight/heterosexual Current gender identity: male What is your relationship status?: How often do you talk on the phone with friends or family?: three or more times per week How often do you get together with friends or relatives?: decline to answer How often do you attend episcopalian or mormon services?: 1-3 times per year Do you belong to any clubs or organized social groups?: no Panel score (0-1 are the most socially isolated patients): 2 What type of physical activity do you participate in: none and walking Frequency: does not exercise Margie/Latter-Day: Orthodoxy Special margie needs: No Seatbelt use: always Helmet use: Yes Helmet use: sometimes Drive intox 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
--- NOTE | 2024-12-09 06:15 | DI.CT_ITS ---
Exam(s) CT THORAX ABD/PEL CTA EXAM: CT THORAX ABD/PEL CTA CLINICAL HISTORY: eval for aortic dissection, back/abdominal pain. TECHNIQUE: Imaging Protocol: Axial CT angiography was performed with multi-slice acquisition and m ulti-planar and/or 3D reconstructions. Lung Computer Aided Detection (CAD) was utilized. CONTRAST MATERIAL: Intravenous: Omnipaque 350 contrast volume:100 mL Oral: No COMPARISON: CT CT THORAX CTA from 10/18/[address] CHEST PE CTA from 03/08/2023 FINDINGS: CHEST: Tracheobronchial tree: Patent where visualized. There is no evidence of bronchiectasis. Pulmonary parenchyma: No consolidation or dominant measurable mass. No architectural distortion. Pulmonary Arteries: No evidence of filling defect to suggest pulmonary emboli. Mediastinum and Frieda: No dominant adenopathy or fluid collection. The esophagus is unremarkable. Visualized thyroid: Unremarkable. Pleura: No effusion or pneumothorax. Heart: The heart is not dilated. Jennifer artery calcification is present. No pericardial effusion. Aorta: Thoracic aorta non-dilated. No evidence of dissection. Atherosclerotic calcification is presen t. Soft Tissues: Unremarkable. Bones: Within normal limits for the patient's age.Sternal wires are in place. ABDOMEN AND PELVIS: Abdomen: Celiac axis/mesenteric arteries: No evidence of occlusion or significant stenosis. Atherosclerotic c alcification is present. Renal Arteries: No evidence of occlusion or significant stenosis. Mild atherosclerotic calcification is seen proximally in the left renal artery. Aorta: No evidence of occlusion or significant stenosis. No aneurysm or dissection. Atheroscleroti c calcification is present. Pelvis: Iliac Arteries: No evidence of occlusion or significant stenosis. Mild atherosclerotic calcificatio n is present. Common Femoral Arteries: No evidence of occlusion or significant stenosis. Mild atherosclerotic dyana cification is present. ABDOMEN: Liver: Normal density. No measurable mass. Portal, superior mesenteric and splenic veins: Unremarkable. Gallbladder and Biliary Tract: No gallstones are present. The gallbladder is distended. No intra or extrahepatic biliary ductal dilatation is present. There is mild gallbladder wall thickening. Ther e is also mild pericholecystic fluid. Pancreas: Normal density, no abnormal calcifications or inflammatory process. Spleen: There is a round small hypodensity in the spleen. This may represent a cyst or hemangioma. Adrenals: No masses seen. Kidneys: Normal size, contour and axis. No radiodense stones or obstructive uropathy. No masses seen. Bowel: There is diverticulosis seen in the colon but no evidence of acute diverticulitis. There is n o evidence of bowel obstruction or bowel wall thickening. The stomach is incompletely distended limi ting evaluation. Appendix is unremarkable. Peritoneal Cavity: No ascites, collection or mesenteric inflammatory response. No free air. Lymph Nodes: Within normal limits. Bones: Within normal limits for the patient's age. There is a Schmorl's node in the inferior endplat e of L2. Age-appropriate degenerative changes are present. Soft Tissues: There is a small fat containing umbilical hernia. There are findings suggestive of a p rior right inguinal hernia repair. PELVIS: Bladder: Symmetric distention, no gross wall thickening. Reproductive Organs: The prostate gland is moderately enlarged. Lymph Nodes: Within normal limits. Bones: Within normal limits for the patient's age. IMPRESSION: 1. Distended gallbladder with gallbladder wall thickening and mild pericholecystic fluid. The findin gs raise a question of cholecystitis. No gallstones are present. Gallbladder ultrasound should be c onsidered for further evaluation. 2. Colonic diverticulosis without evidence of acute diverticulitis. 3. No acute pulmonary 4. No evidence of abdominal aortic or thoracic aortic dissection. RADIATION DOSE DELIVERED: 535.02mGy.cm Total DLP DATA REPOSITORY: All CT scans at this facility are submitted to the National Radiology Data Registry (NRDR) Dose Index Registry (DIR) with the [employer] (ACR). RADIATION OPTIMIZATION: All CT scans at this facility use at least one of these dose optimization te chniques: automated exposure control; mA and/or kV adjustment per patient size (includes targeted exa ms where dose is matched to clinical indication); or iterative reconstruction.
[2024-12-09] MEDS: Aspirin 81 MG CHEW 324 MG CH (06:21)
[2024-12-09 06:24] LABS: Abs Immature Grans 0.02 10^3/uL (0.0-0.06); Absolute Basophil Count 0.08 10^3/uL (0.0-0.2); Absolute Eosinophil Count 0.09 10^3/uL (0.0-0.7); Absolute Lymphocyte Count 1.16 10^3/uL (1.2-3.4); Absolute Monocyte Count 0.62 10^3/uL (0.1-0.8); Absolute Neutrophil Count 7.94 10^3/uL (1.2-6.7); Basophils % 0.8 %; Eosinophils % 0.9 %; HCT 44.9 % (40.0-50.0); HGB 15.5 g/dL (13.5-17.5); Immature Grans % 0.2 %; Lymphocytes % 11.7 %; MCH 32.1 pg (27.0-33.0); MCHC 34.5 % (32.0-36.0); MCV 93 fL (80-95); MPV 9.2 fL (8.0-11.0); Monocytes % 6.3 %; Neutrophils % 80.1 %; Platelet Count 222 10^3/uL (130-400); RBC 4.83 10^6/uL (4.36-5.78); RDW 12.4 % (11.8-14.1); RDW-SD 42.7 fL; WBC 9.91 10^3/uL (4.4-10.8)
[2024-12-09] MEDS: Omnipaque 350 MG/ML 100 ML BTL IJ (06:31)
[2024-12-09] MEDS: Normal Saline - Diluent 50 ML VIAL IJ (06:32)
[2024-12-09] MEDS: Normal Saline Flush 10 ML SYR IVP (06:33)
[2024-12-09 06:48] LABS: PTT Activated 24.2 sec (20.6-30.2); Prothrombin Time 10.4 sec (9.1-11.1)
[2024-12-09 06:53] LABS: ALT 33 U/L (16-63); AST 23 U/L (15-37); Albumin 3.9 g/dL (3.4-5.0); Alkaline Phosphatase 68 U/L (46-116); Anion Gap 8.3 mmol/L (3-11); BUN 11 mg/dL (7-18); Bilirubin, Total 0.7 mg/dL (0.2-1.0); CO2 28.7 mmol/L (21.0-32.0); CREATININE 0.8 mg/dL (0.70-1.30); Calcium 9.8 mg/dL (8.5-10.1); Chloride 104 mmol/L (98-107); Estimated GFR 91.15 (mL/min/1.73m2); Glucose 125 mg/dL (74-106); Lipase 50 U/L (<78); NT-proBNP 89 pg/mL (<300); Potassium 3.8 mmol/L (3.5-5.1); Sodium 141 mmol/L (136-145); Total Protein 7.5 g/dL (6.4-8.2); Troponin I 8 ng/L (<or=76)
[2024-12-09 07:00] LABS: D-Dimer 1489 ng/mlFEU (<500)
[2024-12-09 07:08] LABS: Lactate 0.9 mmol/L (<or=2.0)
[2024-12-09] MEDS: ACETAMINOPHEN 1,000 MG/100 ML BAG 400 MG IVPB (07:14)
--- NOTE | 2024-12-09 07:29 | DI.VRAD_ITS ---
PROCEDURE INFORMATION: Exam: CTA Chest With Contrast CTA Abdomen and Pelvis With Contrast Exam date and time: 12/09/2024 6:33 AM Age: 79 years old Clinical indication: Other: Chest pain; Generalized; Prior surgery; Surgery date: 6+ months; Surgery type: Cabg, aorta, hernia repair; Eval for aortic dissection, back/abdominal pain TECHNIQUE: Imaging protocol: Computed tomographic angiography of the chest with contrast. Exam focused on the arteries. Computed tomographic angiography of the abdomen and pelvis with contrast. Exam focused on the arteries. 3D rendering (Not supervised by radiologist): MIP and/or 3D reconstructed images were created by the technologist. Radiation optimization: All CT scans at this facility use at least one of these dose optimization techniques: automated exposure control; mA and/or kV adjustment per patient size (includes targeted exams where dose is matched to clinical indication); or iterative reconstruction. Contrast material: OMNIPAQUE 350; Contrast volume: 100 ml; Contrast route: INTRAVENOUS (IV); COMPARISON: CT CHEST PE CTA 03/08/2023 7:45 AM FINDINGS: Limitations: Mild motion artifact. VASCULATURE: Pulmonary arteries: No pulmonary embolus is appreciated. Aorta: Aortic root dilated to 4.7 cm. No aortic dissection seen. Atherosclerotic changes in the aorta and its branches. Celiac trunk and mesenteric arteries: No occlusion or significant stenosis. Renal arteries: No occlusion or significant stenosis. Right iliac arteries: No occlusion or significant stenosis. Left iliac arteries: No occlusion or significant stenosis. CHEST: Lungs: No focal consolidation. Pleural spaces: No pleural effusion. Heart: Aortic valve replacement. No pericardial effusion. Coronary arteries: Coronary artery calcifications. ABDOMEN AND PELVIS: Liver: No focal hepatic lesion seen. Gallbladder and biliary ducts: Distended gallbladder. Gallbladder wall thickening. Pancreas: No evidence for acute pancreatitis. Spleen: No splenomegaly. Adrenal glands: No adrenal nodules. Kidneys and ureters: No hydronephrosis. Stomach and bowel: Apparent gastric thickening commensurate with underdistention. Duodenal diverticulum. No intestinal obstruction is evident. Fluid in nondilated small bowel, nonspecific. Retained fecal material is present in the colon. Colonic diverticula. Areas of apparent mural thickening in the colon commensurate with underdistention. Appendix: No evidence of appendicitis. Intraperitoneal space: No free air. Urinary bladder: No bladder wall thickening. Reproductive: Enlarged prostate. Lymph nodes: No acute abnormality. Bones/joints: No acute fracture. Soft tissues: Fat containing umbilical hernia. IMPRESSION: 1. No aortic dissection seen. 2. Gallbladder distension with mural thickening suggesting cholecystitis. This may be further evaluated with right upper quadrant ultrasound if clinically warranted. 3. Additional findings as above. Dictated and Authenticated by: Linh Cantor MD. Orderin Anali Crocker MD
--- NOTE | 2024-12-09 07:30 | DI.US_ITS ---
Exam(s) US ABDOMEN LIMITED EXAM: US ABDOMEN LIMITED CLINICAL HISTORY: Abdominal pain abnormal CT TECHNIQUE: Ultrasound abdomen performed using standard protocol. COMPARISON: CT CT THORAX ABD/PEL CTA from 12/09/2024 FINDINGS: PANCREAS: The pancreas cannot be visualized sonographically due to overlying bowel gas. LIVER: Unremarkable were visualized. Hepatopetal flow in the Portal Vein. The liver measures in 14.9 cm length. No evidence of a hepatic mass. GALLBLADDER: No evidence of cholelithiasis. Mild gallbladder wall thickening. Trace pericholecystic fluid. Gallbladder wall diameter 4 cm. BILIARY SYSTEM: Common bile duct measures < 7 mm. No intrahepatic biliary ductal dilation. HUIZAR'S SIGN: Negative. RIGHT KIDNEY: Kidney is normal in size. No evidence of renal calculi. No evidence of hydronephrosis. No renal mass or cyst identified. ASCITES: None seen. IMPRESSION: 1. No evidence of cholelithiasis. Negative sonographic Huizar sign. 2. Gallbladder wall thickening and trace pericholecystic fluid which can be seen with acalculous chol ecystitis. Please correlate clinically. DATA REPOSITORY:
--- NOTE | 2024-12-09 07:33 | ED.PROG_ITS ---
Date of service: 12/09/24 Time of Service: 07:33 Medical Decision Making I received signout on this 79-year-old male with history of prior CABG aortic valve replacement and aortic aneurysm repair no the emergency department setting of chest and upper abdominal pain with back pain. His CT scan was concerning fo r gallbladder wall thickening and have ordered a right upper quadrant ultrasound. His LFTs are reassuring. His initial troponin was unremarkable and his lactate is within normal limits. 10:51 AM I spoke with Dr. Bloom from general surgery who would see the patient. His plan was given the patient is well-appearing without cholelithiasis that he may have certainly passed a gallstone. He recommended discharging with 5 days of twice daily amoxicillin clavulanic acid and outpatient surgical follow-up. Will give patient strict return indications including fever worsening pain or any inability to tolerate p.o. Quality:[facility] Health Related Social Needs: No Data to Display Discharge Plan Disposition Patient Disposition: Home Discharge Details Clinical Impression: Thickening of wall of gallbladder with pericholecystic fluid Primary Care Provider: Hira Davis ED Provider: Avelino Arroyo Home Meds and New Rx's Prescriptions: New amoxicillin-pot clavulanate 875-125 mg tablet 1 tab PO BID 5 Days Qty: 10 0RF Continued aspirin 81 mg tablet,chewable 81 mg PO DAILY atorvastatin 80 mg tablet 80 mg PO DAILY Qty: 90 4RF metoprolol succinate 25 mg tablet extended release 24 hr 25 mg PO DAILY amoxicillin 500 mg capsule 2,000 mg PO PRN PRN (Reason: for dental work) famotidine 40 mg tablet 40 mg PO DAILY Patient Comments: TAKE ONE TABLET BY MOUTH EVERY DAY Discharge Instructions Additional Instructions: You are seen in the emergency department for your abdominal pain. Your gallbladder did show some signs of inflammation. General surgery recommends that you take these antibiotics twice a day as directed for the next 5 days and follow-up with general surgery as an outpatient in the next 1 to 2 weeks. As we discussed if you develop fevers worsening pain cannot eat or drink as result of nausea vomiting or if you have any other concerns please return to the emergency department. For your pain please take medications as follows: 1. Take acetaminophen (Tylenol), 1,000 mg (two 500 mg tabs) every 6 hours
[2024-12-09 08:33] LABS: Bilirubin Negative (Negative); Blood Negative (Negative); Clarity Clear (Clear); Glucose Negative (Negative); Ketones Negative (Negative); Leukocyte Esterase Negative (Negative); Nitrite Negative (Negative); Specific Gravity 1.015 (1.005-1.025); Urobilinogen 0.2 mg/dL (Up to 0.2)
[2024-12-09 09:41] LABS: Troponin I 7 ng/L (<or=76)
[2024-12-09 09:55] LABS: Troponin I 9 ng/L (<or=76)
--- NOTE | 2024-12-09 10:38 | SCONE_ITS ---
Date of service: 12/09/24 Time of Service: 19:02 Assessment and Plan Assessment and plan (1) Thickening of wall of gallbladder with pericholecystic fluid: Status: Acute Assessment and plan: 79-year-old man with radiographic imaging suggestive of acute, ACALCULOUS, cholecystitis. He is hemodynamically stable. Subjectively his epigastric pain has gone away. His back pain is improving. He has a benign abdominal exam. His LFTs are normal. He has no leukocytosis. His lipase is normal. I do not know how to explain his gallbladder imaging and/or cholecystitis in the absence of gallstones. He is not really a typical presentation of a calculus cholecystitis. He is not immunosuppressed nor is he acutely ill. I WONDER may be he had an isolated gallstone and passed it. This is an atypical case and I recommend atypical management strategy. He is very stable, benign abdomen and subjectively has really no complaints of significance. I think it is completely reasonable to treat this with antibiotics and time. There are no gallstones. Under the presumption this IS a calculus cholecystitis, I do not see any reason why we cannot treat the infection and get past it. In the absence of gallstones, it really should not recur. The patient and his are in agreement with this management strategy. Will give him 5-day course of antibiotics. If anything worsens he is to come back to the emergency department. If it persists, he is to follow-up with us outpatient and we can discuss urgent or elective cholecystectomy. If everything gets better, then that is great and nothing further needs to be done. I am optimistic that everything is going to get better for him and not be recurrent because there are no gallstones. Again, I have no explanation for why he would have cholecystitis in the absence of gallstones, but if we can get the infection to go away, I am not too worried about it. If he continues to have back pain and other subjective issues, a HIDA scan could be helpful/useful on an outpatient basis. Overall plan: Discharge home on oral antibiotics Follow-up in 2 weeks HIDA scan if persistent symptoms History of Present Illness Narrative: The patient is a 79-year-old man who comes in because of significant epigastric pain that started late last night and would not go away. At the time of consultation its completely gone. He has never had it before. Separately, he has been having back pain for the last 3 days. That is mostly improved but not completely gone at the time of consultation. Aside from all this he has been having diarrhea on and off for the last 1 or 2 years. They do not have an explanation for it. They say it happens about once a month. He has had multiple hernia surgeries. He has had a CABG. He is otherwise pretty healthy. A CT scan was done and then an ultrasound was done in the emergency department. Both raise concerns for cholecystitis. Ultrasound showed mild gallbladder wall thickening, mild pericholecystic fluid, no gallstones. [facility] All Active Problems (Updated 12/09/24 @ 10:52 by Avelino Arroyo MD) Thickening of wall of gallbladder with pericholecystic fluid (Acute) S/P aortic valve replacement with bioprosthetic valve (Acute) Jock itch (Acute) Multiple nevi (Acute) Urinary incontinence without sensory awareness (Acute) Seborrheic keratoses (Acute) Post-nasal drainage (Acute) Leaking of urine (Acute) Decreased hearing of left ear (Acute) Sleep disorder (Acute) Migraine without aura (Acute 07/09/13) ocular migraines Hyperlipidemia (Acute 07/09/13) H/O coronary artery bypass surgery (Acute) 11/2011 with pericardial [place] [facility] [place] aneurysm repair (Acute) 11[place]2011 [facility] [place] Gastroesophageal reflux disease (Acute 07/09/13) Medical History Dupuytren's disease of palm Tinea cruris Plantar fascial fibromatosis Inguinal hernia Diverticulosis Inguinal hernia of left side without obstruction or gangrene 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) Plantar fasciitis (07/09/13) Personal history of colonic polyps 07/01/13 -tubular adenoma History of tobacco use (07/09/13) Family history of ischemic heart disease (07/09/13) Contracture of palmar fascia (07/09/13) multiple surgeries - also for ganglion cysts Thoracic aortic aneurysm Right inguinal hernia (09/29/14) Surgical History History of esophagogastroduodenoscopy (EGD) S/P colonoscopy (~01/2024) 09/30/2018 H/O hernia repair (07/08/18) left, Dr Daly Vasectomy Tonsillectomy and adenoidectomy REPAIR OF ACHILLES TENDON Repair of umbilical hernia (~09/2014) Repair of inguinal hernia HAND SURGERY 04/22; DR. 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 (~10/2011) ASCENDING AORTA & AORTIC ROOT REPLACEMENT (~11/2011) 11/[place] [facility] [place] surgical procedure a. replacement of ascending aorta with aortic valve replacement with triple bypass three years ago b. ganglion cyst removal c. hand surgery d. Achilles tendon surgery e. tonsillectomy and adenoidectomy f. vasectomy g. colonoscopy Family History Mother No problems noted. Father , AGE 62 Heart disease Sister No problems noted. Maternal Grandfather , age 84 Stroke Paternal Grandfather , age 62 Heart disease Maternal Grandmother , age 84 Stroke Son No problems noted. Daughter No problems noted. Paternal Grandmother , age 90 No problems noted. Social History Smoking/Tobacco Use Status: Former Tobacco Use tobacco type: cigarettes Quit Date: 09/09/72 Tobacco: How many years used: 6 Quit status: quit date established Second Hand Exposure: No Smoking risk assessment performed?: Yes Alcohol Intake: current Alcohol Intake frequency: a few times a month Alcohol type: beer and hard liquor Drug use: Never Substance use type: does not use Caregiver/Support person: No Household members: spouse Housing: house Communication Needs: Corrective Lenses Do you need help understanding health information?: Never Pets and animals: No Sexually active: Yes Do you think of yourself as: straight/heterosexual Current gender identity: male What is your relationship status?: How often do you talk on the phone with friends or family?: three or more times per week How often do you get together with friends or relatives?: decline to answer How often do you attend scientology or judaism services?: 1-3 times per year Do you belong to any clubs or organized social groups?: no Panel score (0-1 are the most socially isolated patients): 2 What type of physical activity do you participate in: none and walking Frequency: does not exercise Margie/Protestant: Zoroastrianism Special margie needs: No Seatbelt use: always Helmet use: Yes Helmet use: sometimes Drive intox or ride w/intox otr company driver: No Do you feel safe at home: Yes Do you feel safe in your relationship?: Yes Victim of physical abuse: No Victim of emotional abuse: No Victim of sexual abuse: No Would you like helpful sources: No Exam Narrative Exam Narrative: Gen: Non-toxic, comfortable and interactive Neuro: Alert and oriented x3 Psych: Good mood and affect. Good insight and understanding into condition. Chest: Non-labored breathing, no wheezing, no visible shortness of breath. Heart: Regular Abdomen: Soft, nondistended and nontender. There is no right upper quadrant pain. There is no epigastric pain. There is no Huizar sign for sure. Results Last Vital Signs Temp 97.5 F L 12/09/24 06:07 Pulse 59 L 12/09/24 10:00 Resp 17 12/09/24 10:00 BP 112/59 L 12/09/24 09:00 Pulse Ox 97 12/09/24 10:00 Labs 12/09/24 06:15 12/09/24 06:15 Labs: Laboratory Results - last 24 hr 12/09/24 12/09/24 12/09/24 06:15 06:55 08:25 WBC 9.91 RBC 4.83 Hgb 15.5 Hct 44.9 MCV 93 MCH 32.1 MCHC 34.5 RDW 12.4 Plt Count 222 MPV 9.2 Immature Gran % 0.2 Neutrophils % 80.1 Lymphocytes % 11.7 Monocytes % 6.3 Eosinophils % 0.9 Basophils % 0.8 Nucleated RBC % 0.0 Absolute Neutrophils 7.94 H Absolute Lymphocytes 1.16 L Absolute Monocytes 0.62 Absolute Eosinophils 0.09 Absolute Basophils 0.08 PT 10.4 INR 1.0 APTT 24.2 D-Dimer 1489 H VBG Lactate 0.9 Sodium 141 Potassium 3.8 Chloride 104 Carbon Dioxide 28.7 Anion Gap 8.3 BUN 11 Creatinine 0.8 Est GFR (CKD-EPI 2020) 91.15 Glucose 125 H Calcium 9.8 Magnesium 2.0 Total Bilirubin 0.7 AST 23 ALT 33 Alkaline Phosphatase 68 Troponin I 8 7 NT-Pro-B Natriuret Pep 89 Total Protein 7.5 Albumin 3.9 Lipase 50 Urine Color Yellow Urine Clarity Clear Urine pH 8.0 Ur Specific [place] 1.015 Urine Protein Negative Urine Ketones Negative Urine Blood Negative Urine Nitrite Negative Urine Bilirubin Negative Urine Urobilinogen 0.2 Ur Leukocyte Esterase Negative Urine Glucose Negative 12/09/24 09:30 WBC RBC Hgb Hct MCV MCH MCHC RDW Plt Count MPV Immature Gran % Neutrophils % Lymphocytes % Monocytes % Eosinophils % Basophils % Nucleated RBC % Absolute Neutrophils Absolute Lymphocytes Absolute Monocytes Absolute Eosinophils Absolute Basophils PT INR APTT D-Dimer VBG Lactate Sodium Potassium Chloride Carbon Dioxide Anion Gap BUN Creatinine Est GFR (CKD-EPI 2020) Glucose Calcium Magnesium Total Bilirubin AST ALT Alkaline Phosphatase Troponin I 9 NT-Pro-B Natriuret Pep Total Protein Albumin Lipase Urine Color Urine Clarity Urine pH Ur Specific [place] Urine Protein Urine Ketones Urine Blood Urine Nitrite Urine Bilirubin Urine Urobilinogen Ur Leukocyte Esterase Urine Glucose
== END 2024-12-09 11:09 | disposition home or self-care (01) ==
PROVIDERS: Student in an Organized Health Care Education/Training Program; Emergency Provider Emergency Medicine; PCP Family Medicine
DX: K82.8 Other specified diseases of gallbladder (principal); Z95.5 Presence of coronary angioplasty implant and graft; Z95.2 Presence of prosthetic heart valve; Z79.82 Long term (current) use of aspirin; Z87.891 Personal history of nicotine dependence
CPT/HCPCS: 00123; 71275; 80053; 83690; 93005; 96365; 99285; 74174; 76705; 81003; 83605; 83735; 83880; 84484; 85025; 85379; 85610; 85730; 93010; J0131; J3490

== ENCOUNTER → 2025-01-07 12:56 | Outpatient (BNVA) | payer MEDICARE, SELFPAY | PROVIDERS: PCP Family Medicine; Referring Provider Family Medicine; Visit Provider Student in an Organized Health Care Education/Training Program | DX: K82.9 Disease of gallbladder, unspecified (principal) | CPT/HCPCS: 99214 ==

== ENCOUNTER 2025-02-17 22:21 | Outpatient (REF) | payer MEDICARE, SELFPAY ==
[2025-02-17 22:26] LABS: Abs Immature Grans 0.01 10^3/uL (0.0-0.06); Absolute Basophil Count 0.08 10^3/uL (0.0-0.2); Absolute Eosinophil Count 0.13 10^3/uL (0.0-0.7); Absolute Lymphocyte Count 1.36 10^3/uL (1.2-3.4); Absolute Monocyte Count 0.48 10^3/uL (0.1-0.8); Absolute Neutrophil Count 3.38 10^3/uL (1.2-6.7); Basophils % 1.5 %; Eosinophils % 2.4 %; HCT 41.6 % (40.0-50.0); HGB 14.3 g/dL (13.5-17.5); Immature Grans % 0.2 %; MCH 31.9 pg (27.0-33.0); MCHC 34.4 % (32.0-36.0); MCV 93 fL (80-95); MPV 10.4 fL (8.0-11.0); Monocytes % 8.8 %; Neutrophils % 62.1 %; Platelet Count 212 10^3/uL (130-400); RBC 4.48 10^6/uL (4.36-5.78); RDW 12.1 % (11.8-14.1); RDW-SD 41.5 fL; WBC 5.44 10^3/uL (4.4-10.8)
[2025-02-17 22:40] LABS: ALT 42 U/L (16-63); AST 34 U/L (15-37); Albumin 3.8 g/dL (3.4-5.0); Alkaline Phosphatase 64 U/L (46-116); Anion Gap 3.9 mmol/L (3-11); BUN 18 mg/dL (7-18); Bilirubin, Total 0.5 mg/dL (0.2-1.0); CO2 33.1 mmol/L (21.0-32.0); CREATININE 0.9 mg/dL (0.70-1.30); Calcium 9.1 mg/dL (8.5-10.1); Chloride 106 mmol/L (98-107); Estimated GFR 87.42 (mL/min/1.73m2); Glucose 99 mg/dL (74-106); Potassium 4.6 mmol/L (3.5-5.1); Sodium 143 mmol/L (136-145); Total Protein 6.9 g/dL (6.4-8.2)
[2025-02-19 10:13] LABS: Lyme Ab w Rflx to Lyme Confirm Negative (Negative)
[2025-02-20 23:23] LABS: Anaplasma phagocytophilum Negative (Negative); B. miyamotoi PCR Negative (Negative); Babesia divergens/MO-1 Negative (Negative); Babesia duncani Negative (Negative); Babesia microti Negative (Negative); Ehrlichia chaffeensis Negative (Negative); Ehrlichia ewingii/canis Negative (Negative); Ehrlichia muris eauclairensis Negative (Negative)
[2025-03-06 15:11] LABS: Testosterone, Free 8.84 ng/dL (3.08-11.3); Testosterone, Total 472 ng/dL (240-950)
== END 2025-02-17 22:22 | disposition home or self-care (01) ==
LOC: NCHCN 22:21
PROVIDERS: PCP Family Medicine; Visit Provider Family Medicine
DX: R53.83 Other fatigue (principal); R53.81 Other malaise
CPT/HCPCS: 80053; 84402; 84403; 87798; 84443; 85025; 86618

== ENCOUNTER 2025-03-10 02:47 | Outpatient (CLI) | payer MEDICARE, SELFPAY ==
--- NOTE | 2025-03-10 | DI.CT_ITS ---
Exam(s) CT CHEST/ABD/PEL W EXAM: CT CHEST/ABD/PEL W CLINICAL HISTORY: WEIGHT LOSS, UNINTENTIONAL, ABNORMAL R63.4. TECHNIQUE: Imaging Protocol: Axial computed tomography images with coronal and sagittal reformatted images were created and reviewed CONTRAST MATERIAL: Intravenous: Omnipaque 350 Contrast volume:100 ml Oral: Yes. Oral contrast was also administered for bowel opacification. COMPARISON: CT CT THORAX ABD/PEL CTA from 12/09/2024 FINDINGS: CHEST: LUNGS: Some pleural based scarring in the right upper lobe is again noted. A small nodular density in the sub apical right upper lobe is again noted, measuring 4 mm, unchanged. No new right lung infiltrates.. No pleural effusions. There is a small nodule in the lingular segment of the left lung aga in noted which measures 4 mm, unchanged. There are no new focal left lung findings. No pleural effusions on either side. There are no new significant focal findings in trachea and mainstem bronchi.. MEDIASTINUM: There is no hilar nor mediastinal adenopathy. Visualized thyroid unremarkable. CARDIAC: Sternotomy wires are again noted. Also prosthetic aortic valve. The diameter of the ascending thoracic aorta is again noted be enlarged, measuring 4.5 cm, similar to previous. The diameter of the aortic arch is upper normal. Diameter of the descending thoracic aorta is upper normal. There is no evidence of aortic dissection nor pericardial effusion. Coronary artery calcification again noted. OSSEOUS: No significant osseous lesions.No fractures. Schmorl's node invagination in the inferior endplate of L2 and L3 unchanged from previous.. Chronic disc space narrowing at L5-S1 noted. No listhesis. No pars defects. ABDOMEN: There is no ascites. LIVER: There are no focal hepatic lesions nor dilatation of intrahepatic ducts. GALLBLADDER/BILIARY: No obvious acute gallbladder pathology. CBD is not dilated. There is a medial wall duodenal diverticulum noted. PANCREAS: No evidence of pancreatic mass nor dilatation of the pancreatic duct. There are no pancreatic parenchymal calcifications. SPLEEN: Spleen size is normal. A small cyst in the posterior aspect of the spleen is again noted. This measures 1 cm. Splenic and portal veins are patent. ADRENALS: There are no significant adrenal masses. KIDNEYS: No calculi nor hydronephrosis. No solid renal masses. No cysts evident. ABDOMINAL AORTA: Abdominal aorta is not enlarged. LYMPH NODES: There is no retroperitoneal nor paraaortic adenopathy. ABDOMINAL WALL: No evidence of significant anterior abdominal wall hernia. GI: There is no evidence of bowel obstruction.The oral contrast has reached the right-side of the colon at the time of image acquisition. Density in the anterior right pelvis is probably from prior inguinal hernia repair. It is unchanged from previous. PELVIS: LYMPH NODES: There is no intrapelvic nor inguinal adenopathy. GI: No evidence of appendicitis.No evidence of sigmoid diverticulitis. URINARY BLADDER: No calculi nor masses evident REPRODUCTIVE: Prostate gland is moderately enlarged with transverse diameter 5.8 cm. Seminal vesicles unremarkable. There is no obturator adenopathy. OSSEOUS: No significant osseous lesions. IMPRESSION: 1. Stable appearance of above described lung findings unchanged from 12/09/2024. No new significant pulmonary findings nor pleural effusions nor intrathoracic adenopathy. 2. Sternotomy wires and other cardiac findings as above. Heart size is minimally prominent. Ascending thoracic aorta measures 4.5 cm, similar to previous. 3. Moderately enlarged prostate gland. Urinary bladder is mildly distended. 4. No evidence of significant lymphadenopathy nor ascites. No splenomegaly. RADIATION DOSE DELIVERED: 345.29mGy.cm Total DLP DATA REPOSITORY: All CT scans at this facility are submitted to the National Radiology Data Registry (NRDR) Dose Index Registry (DIR) with the [employer] (ACR). RADIATION OPTIMIZATION: All CT scans at this facility use at least one of these dose optimization techniques: automated exposure control; mA and/or kV adjustment per patient size (includes targeted exams where dose is matched to clinical indication); or iterative reconstruction.
[2025-03-10] MEDS: Barium Sulfate 2% W/V-Berry Smoothie 450 ML BTL PO (13:26)
[2025-03-10] MEDS: Barium Sulfate 2% W/V-Creamy Vanilla Smoothie 450 ML BTL PO (13:27)
[2025-03-10] MEDS: Omnipaque 350 MG/ML 100 ML BTL 75 ML IJ (15:35)
[2025-03-10] MEDS: Normal Saline - Diluent 50 ML VIAL IJ (15:36)
== END 2025-03-10 03:07 ==
LOC: DI 02:48
PROVIDERS: PCP Family Medicine; Visit Provider Family Medicine
DX: R63.4 Abnormal weight loss (principal); N40.0 Benign prostatic hyperplasia without lower urinary tract symptoms
CPT/HCPCS: 74177; 71260; J3490

== ENCOUNTER → 2025-06-29 09:20 | Outpatient (BNVA) | payer MEDICARE, SELFPAY | PROVIDERS: PCP Family Medicine; Visit Provider Internal Medicine Cardiovascular Disease | DX: Z95.1 Presence of aortocoronary bypass graft (principal); Z95.3 Presence of xenogenic heart valve | CPT/HCPCS: 99213 ==